=== PATIENT | female | born 1965 | race Caucasian/White ===

== ENCOUNTER → 2016-03-11 | Outpatient (CLI) | payer OTHER ==
--- NOTE | 2016-03-11 13:09 | XR ---
EXAMINATION TYPE: XR abdomen 1V DATE OF EXAM: 03/11/2016 12:59 PM CLINICAL HISTORY: Abdominal pain and constipation for 10 days. TECHNIQUE: 2 upright KUB images of the abdomen are obtained. COMPARISON: CT abdomen and pelvis April 09, 2009 FINDINGS: Scattered gas is seen in non-distended stomach and small bowel loops. Gas and fecal mater ial is seen in non-distended colon. Amount of fecal material is not significantly prominent. Large ri m calcified lesion left upper quadrant corresponds to calcified lesion along the anterior superior ma rgin of spleen and felt stable thus presumed benign. Lung bases are clear. No pneumoperitoneum is pre sent. Visualized osseous structures are intact IMPRESSION: Overall nonobstructive bowel gas pattern.
== END | disposition home or self-care (01) ==
LOC: RADXRMAIN 12:41
PROVIDERS: ATTEND Internal Medicine
DX: R10.9 Unspecified abdominal pain (principal)
CPT/HCPCS: 74000

== ENCOUNTER 2016-03-12 11:09 | Observation (INO) | payer OTHER ==
[2016-03-12] MEDS ORDERED: LACTULOSE 20 GM/30 ML CUP PO ONE (13:34)
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
[2016-03-12 14:13] LABS: Basophils % (A) 1 %; CH 31.5; CHCM 33.1; Eosinophils # (A) 0.3 k/uL (0-0.7); Eosinophils % (A) 5 %; HCT 38.3 % (34.0-46.0); HDW 2.79; HGB 12.6 gm/dL (11.4-16.0); Luc # (Auto) 0.15; Luc % (Auto) 3; Lymphocytes # (A) 1.3 k/uL (1.0-4.8); Lymphocytes % (A) 25 %; MCH 31.4 pg (25.0-35.0); MCHC 32.9 g/dL (31.0-37.0); MCV 95.4 fL (80.0-100.0); Mean Platelet Volume 6.7; Monocytes # (A) 0.3 k/uL (0-1.0); Monocytes % (A) 7 %; Neutrophils # (A) 2.9 k/uL (1.3-7.7); Neutrophils % (A) 59 %; RBC 4.01 m/uL (3.80-5.40); RDW 12.9 % (11.5-15.5); WBC 4.9 k/uL (3.8-10.6); WBC (Perox) 5.44
[2016-03-12 14:32] LABS: ALT 50 U/L (9-52); AST 25 U/L (14-36); Alkaline Phosphatase 218 U/L (38-126); Anion Gap 9 mmol/L; Blood Urea Nitrogen 14 mg/dL (7-17); Calcium 9.5 mg/dL (8.4-10.2); Carbon Dioxide 27 mmol/L (22-30); Chloride 106 mmol/L (98-107); Glucose 129 mg/dL (74-99); Magnesium 2.3 mg/dL (1.6-2.3); Non-African American GFR(MDRD) >60 (>60 ml/min/1.73 sqM); Sodium 142 mmol/L (137-145); Total Bilirubin 0.8 mg/dL (0.2-1.3); Total Protein 6.6 g/dL (6.3-8.2)
[2016-03-12] MEDS: oxyCODONE-APAP 10-325MG 1 EACH TAB PO PRN ×2 (16:14→23:28)
[2016-03-12] MEDS: HEPARIN SODIUM,PORCINE 5,000 UNIT/ML 1 ML VIAL SQ SCH (20:44)
[2016-03-12] MEDS: DIAZEPAM 5 MG TAB PO PRN (20:44)
[2016-03-13] MEDS: oxyCODONE-APAP 10-325MG 1 EACH TAB PO PRN ×3 (05:17→20:00)
[2016-03-13] MEDS: HYDROCHLOROTHIAZIDE 25 MG TAB PO SCH (08:41)
[2016-03-13] MEDS: HEPARIN SODIUM,PORCINE 5,000 UNIT/ML 1 ML VIAL SQ SCH ×2 (08:41→20:01)
[2016-03-13] MEDS: LISINOPRIL 10 MG TAB PO SCH (10:04)
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
[2016-03-13] MEDS: DIAZEPAM 5 MG TAB PO PRN (20:01)
[2016-03-13] MEDS ORDERED: POLYETHYLENE GLYCOL 3350 17 GM POWD.PACK PO SCH (21:00)
[2016-03-14] MEDS: oxyCODONE-APAP 10-325MG 1 EACH TAB PO PRN ×2 (05:01→11:17)
[2016-03-14] MEDS: HYDROCHLOROTHIAZIDE 25 MG TAB PO SCH (08:20)
[2016-03-14] MEDS: HEPARIN SODIUM,PORCINE 5,000 UNIT/ML 1 ML VIAL SQ SCH (08:20)
[2016-03-14] MEDS: LISINOPRIL 10 MG TAB PO SCH (08:20)
[2016-03-14 11:47] VITALS: BP 109/76; RESP 14; TEMP 97.9
[2016-03-14 12:12] VITALS: PULSE 60
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
== END 2016-03-14 14:01 | disposition home or self-care (01) ==
LOC: 3OBS 11:22
PROVIDERS: ADMIT Internal Medicine; ATTEND Internal Medicine
DX: K56.41 Fecal impaction (principal); R33.9 Retention of urine, unspecified; G89.29 Other chronic pain; M54.5 Low back pain; I10 Essential (primary) hypertension; Z87.891 Personal history of nicotine dependence; Z79.899 Other long term (current) drug therapy; Z79.891 Long term (current) use of opiate analgesic; Z88.5 Allergy status to narcotic agent; Z98.890 Other specified postprocedural states
CPT/HCPCS: 51702; 80053; 83735; 85025; 51798; G0378 ×3; G0379; J1644 ×3; 96372

== ENCOUNTER → 2017-04-25 | Outpatient (CLI) | payer OTHER ==
--- NOTE | 2017-04-26 12:02 | MM ---
Reason for exam: screening (asymptomatic). Last mammogram was performed 2 years and 5 months ago. History: Patient is postmenopausal and has history of endometrial cancer at age 34. Family history of premenopausal breast cancer in mother at age 45. Benign stereotactic core biopsy of the left breast, April 05, 2001. Physical Findings: A clinical breast exam by your physician is recommended on an annual basis and results should be correlated with mammographic findings. MG Screening Mammo w CAD Bilateral CC and MLO view(s) were taken. Prior study comparison: November 26, 2014, bilateral MG screening mammo w CAD. February 08, 2007, bilateral screening mammogram w/CAD. There are scattered fibroglandular densities. No suspicious abnormality. Left biopsy marker noted. No significant changes when compared with prior studies. ASSESSMENT: Negative, BI-RAD 1 RECOMMENDATION: Routine screening mammogram of both breasts in 1 year.
== END | disposition home or self-care (01) ==
LOC: RADMAMWWP 13:31
PROVIDERS: ATTEND Internal Medicine
DX: Z12.31 Encounter for screening mammogram for malignant neoplasm of breast (principal)
CPT/HCPCS: 77067

== ENCOUNTER → 2017-07-27 | Outpatient (CLI) | payer OTHER ==
--- NOTE | 2017-07-27 10:23 | XR ---
EXAMINATION TYPE: XR cervical spine limited DATE OF EXAM: 07/27/2017 COMPARISON: 11/24/1949 HISTORY: Pain TECHNIQUE: Three views are submitted. FINDINGS: Postsurgical change involving the lower cervical spine degenerative disc disease C4-5 and C5-C6 with facet arthropathy at all levels. Prevertebral soft tissue structures within normal limits. Lung apices clear. IMPRESSION: 1. Postsurgical change. 2. Degenerative disc disease and facet arthropathy.
== END | disposition home or self-care (01) ==
LOC: RADXRMAIN 09:56
PROVIDERS: ATTEND Internal Medicine
DX: R52 Pain, unspecified (principal)
CPT/HCPCS: 72040

== ENCOUNTER 2017-11-16 16:35 | Observation (INO) | payer OTHER ==
[2017-11-16 17:32] LABS: Basophils % (A) 0 %; Eosinophils # (A) 0.2 k/uL (0-0.7); Eosinophils % (A) 3 %; HCT 46.2 % (34.0-46.0); HGB 15.1 gm/dL (11.4-16.0); Lymphocytes # (A) 1.7 k/uL (1.0-4.8); Lymphocytes % (A) 31 %; MCH 31.1 pg (25.0-35.0); MCHC 32.6 g/dL (31.0-37.0); MCV 95.3 fL (80.0-100.0); Mean Platelet Volume 6.9; Monocytes # (A) 0.4 k/uL (0-1.0); Monocytes % (A) 7 %; Neutrophils # (A) 3.2 k/uL (1.3-7.7); Neutrophils % (A) 57 %; Platelet Count 199 k/uL (150-450); RBC 4.85 m/uL (3.80-5.40); WBC 5.6 k/uL (3.8-10.6)
[2017-11-16 17:46] LABS: ALT 51 U/L (9-52); AST 41 U/L (14-36); Albumin 4.4 g/dL (3.5-5.0); Alkaline Phosphatase 105 U/L (38-126); Anion Gap 7 mmol/L; Blood Urea Nitrogen 16 mg/dL (7-17); Calcium 9.6 mg/dL (8.4-10.2); Carbon Dioxide 26 mmol/L (22-30); Chloride 106 mmol/L (98-107); Glucose 94 mg/dL (74-99); Lipase 202 U/L (23-300); Magnesium 2.3 mg/dL (1.6-2.3); Potassium 3.9 mmol/L (3.5-5.1); Sodium 139 mmol/L (137-145); Total Bilirubin 0.7 mg/dL (0.2-1.3); Total Protein 7.5 g/dL (6.3-8.2)
[2017-11-16 17:48] LABS: Prothrombin Time 9.7 sec (9.0-12.0)
[2017-11-16 17:56] LABS: Creatine Kinase 53 U/L (30-135)
[2017-11-16 18:00] LABS: D-Dimer 0.68 mg/L FEU (<0.60)
[2017-11-16 18:08] LABS: Creatine Kinase MB 0.6 ng/mL (0.0-2.4); Troponin I <0.012 ng/mL (0.000-0.034)
--- NOTE | 2017-11-16 18:21 | ED ---
Chest Pain HPI - General Chief Complaint: Chest Pain Stated Complaint: chest pain Time Seen by Provider: 11/16/17 16:41 Source: patient, RN notes reviewed, old records reviewed Mode of arrival: ambulatory Limitations: no limitations - History of Present Illness Initial Comments: This is a 52-year-old female to the ER for evasive chest pain. Chest pain is nonspecific atypical. Patient sent in by primary care for cardiac evaluation. Patient states chest pain is left-sided sharp and is episodic. Nothing seems to make it better or worse, pain seems to be occasionally worse at night occur more frequently at night. She does also shortness of breath and diaphoresis. No recent travel history or sick contacts again no fevers MD Complaint: chest pain -: week(s) (5) Onset: during rest, during exertion, awoke with symptoms Pain Location: left chest Pain Radiation: none Severity: mild Severity scale (1-10): 3 Quality: sharp Consistency: intermittent, now resolved Improves With: nothing Worsens With: nothing Anginal Symptoms: diaphoresis, dyspnea Other Symptoms: palpitations Treatments Prior to Arrival: none - Related Data Home Medications Medication Instructions Recorded Confirmed oxyCODONE HCL/ACETAMINOPHEN 1 tab PO BID PRN 09/18/14 11/16/17 [Percocet 10-325 mg] Diazepam [Valium] 2 mg PO TID 11/16/17 11/16/17 Ergocalciferol [Vitamin D2] 50,000 unit PO MO 11/16/17 11/16/17 Allergies Allergy/AdvReac Type Severity Reaction Status Date / Time morphine Allergy Anaphylaxis Verified 11/16/17 17:07 Review of Systems ROS Statement: Those systems with pertinent positive or pertinent negative responses have been documented in the HPI. ROS Other: All systems not noted in ROS Statement are negative. EKG Findings - EKG Comments: EKG Findings:: EKG shows sinus rate of 60, AK 172, QRS 86, QTc 478 Past Medical History Past Medical History: No Reported History, Hypertension, Osteoarthritis (OA) History of Any Multi-Drug Resistant Organisms: None Reported Past Surgical History: Back Surgery, Hysterectomy, Orthopedic Surgery Additional Past Surgical History / Comment(s): 03/02/16-right knee cap reconstruction. neck 3x-crushed c7= has 10 screws, 2 rods, and a cage. 17 screws and plate in the right lower leg Past Anesthesia/Blood Transfusion Reactions: Motion Sickness Past Psychological History: No Psychological Hx Reported Smoking Status: Current every day smoker Past Alcohol Use History: Abuse, Daily Past Drug Use History: None Reported - Past Family History Mother Family Medical History: Congestive Heart Failure (CHF) Father Family Medical History: Cancer, Respiratory Disorder Additional Family Medical History / Comment(s): emphasema and lung cancer General Exam Limitations: no limitations General appearance: alert, in no apparent distress Head exam: Present: atraumatic, normocephalic, normal inspection Eye exam: Present: normal appearance, PERRL, EOMI. Absent: scleral icterus, conjunctival injection, periorbital swelling ENT exam: Present: normal exam, mucous membranes moist Neck exam: Present: normal inspection. Absent: tenderness, meningismus, lymphadenopathy Respiratory exam: Present: normal lung sounds bilaterally. Absent: respiratory distress, wheezes, rales, rhonchi, stridor Cardiovascular Exam: Present: regular rate, normal rhythm, normal heart sounds. Absent: systolic murmur, diastolic murmur, rubs, gallop, clicks GI/Abdominal exam: Present: soft, normal bowel sounds. Absent: distended, tenderness, guarding, rebound, rigid Extremities exam: Present: normal inspection, full ROM, normal capillary refill. Absent: tenderness, pedal edema, joint swelling, calf tenderness Back exam: Present: normal inspection Neurological exam: Present: alert, oriented X3, CN II-XII intact Psychiatric exam: Present: normal affect, normal mood Skin exam: Present: warm, dry, intact, normal color. Absent: rash Course Vital Signs 11/16/17 11/16/17 16:37 18:46 Temperature 98.4 F Pulse Rate 61 55 L Respiratory 18 20 Rate Blood Pressure 176/104 163/102 O2 Sat by Pulse 99 96 Oximetry - Reevaluation(s) Reevaluation #1: 11/16/17 19:12 Medical records thoroughly reviewed Reevaluation #2: 11/16/17 19:12 Patient is still complaining of chest pain Reevaluation #3: 11/16/17 19:13 Studies Chest x-rays negative for acute disease Chest Pain MDM - MDM 52 female the ER with chest pain. Patient will be admitted for cardiac observation, no significant cardiac risk factors CT negative troponin negative Critical Care Time Critical Care Time: Yes Total Critical Care Time: 31 Disposition Clinical Impression: Chest pain Disposition: ADMITTED IP TO THIS HOSP Condition: Undetermined
[2017-11-16] MEDS ORDERED: NITROGLYCERIN SL TABS 0.4 MG TAB SUBLINGUAL PRN (18:56)
[2017-11-16] MEDS ORDERED: HEPARIN SODIUM,PORCINE 5,000 UNIT/ML 1 ML VIAL IV ONE (18:56)
[2017-11-16] MEDS ORDERED: HEPARIN SODIUM,PORCINE 5,000 UNIT/ML 1 ML VIAL IV PRN (18:56)
--- NOTE | 2017-11-16 18:59 | CT ---
EXAMINATION TYPE: CT angio chest DATE OF EXAM: 11/16/2017 6:34 PM COMPARISON: 02/10/2014 HISTORY: Chest pain x1 week CT DLP: 349.5 mGycm Automated exposure control for dose reduction was used. CONTRAST: CTA scan of the thorax is performed with IV Contrast, patient injected with 60 mL of Isovue 370, pulm onary embolism protocol. . There are 3-D post processed images. FINDINGS: The lungs are clear of consolidation. There is no evidence of a pulmonary mass. There is no pleural e ffusion. There is no pericardial effusion. Ascending aorta measures 4 cm. There is no evidence of aortic dissection. I see no filling defects in the pulmonary arteries. There are no hilar masses. There is no mediastinal adenopathy. The bony thor ax is intact. There is metal artifact from spine surgery at the cervical thoracic junction. There is a 9 cm cystic mass involving the anterior spleen with a rim of calcification. This could be from old hematoma. IMPRESSION: NO EVIDENCE OF PULMONARY EMBOLISM. STABLE 4 cm ANEURYSM ASCENDING AORTA. STABLE LARGE CALCIFIED SPLEN IC CYST.
[2017-11-16] MEDS ORDERED: HEPARIN SOD,PORK IN 0.45% NACL 25,000 UNIT in 0.45% NACL 1 500ML.BAG IV SCH (19:00)
[2017-11-16] MEDS: SODIUM CHLORIDE 0.9% 1,000 ML IV SCH (19:09)
[2017-11-16 20:57] VITALS: BMI 35.4
[2017-11-16] MEDS: DIAZEPAM 2 MG TAB PO PRN (21:01)
[2017-11-16] MEDS: oxyCODONE-APAP 10-325MG 1 EACH TAB PO PRN (21:01)
[2017-11-16] MEDS: METOPROLOL TARTRATE 25 MG TAB PO SCH (21:02)
[2017-11-16 23:30] LABS: Creatine Kinase 35 U/L (30-135)
[2017-11-16 23:44] LABS: Creatine Kinase MB 0.4 ng/mL (0.0-2.4); Troponin I <0.012 ng/mL (0.000-0.034)
[2017-11-17 06:24] LABS: Mean Platelet Volume 6.9; Platelet Count 165 k/uL (150-450)
[2017-11-17] MEDS: SODIUM CHLORIDE 0.9% 1,000 ML IV SCH ×2 (06:26→08:59)
[2017-11-17 06:37] LABS: Cholesterol 209 mg/dL (<200); HDL Cholesterol 59 mg/dL (40-60); LDL Cholesterol,Calculated 110 mg/dL (0-99); Triglycerides 201 mg/dL (<150)
[2017-11-17 06:45] LABS: Creatine Kinase 34 U/L (30-135)
[2017-11-17 06:59] LABS: Creatine Kinase MB 0.3 ng/mL (0.0-2.4); Troponin I <0.012 ng/mL (0.000-0.034)
[2017-11-17 08:58] LABS: Basophils % (A) 1 %; Eosinophils # (A) 0.2 k/uL (0-0.7); Eosinophils % (A) 5 %; HCT 38.6 % (34.0-46.0); Lymphocytes # (A) 1.6 k/uL (1.0-4.8); Lymphocytes % (A) 40 %; MCH 31.9 pg (25.0-35.0); MCHC 33.8 g/dL (31.0-37.0); MCV 94.4 fL (80.0-100.0); Mean Platelet Volume 7.2; Monocytes # (A) 0.3 k/uL (0-1.0); Monocytes % (A) 8 %; Neutrophils # (A) 1.8 k/uL (1.3-7.7); Neutrophils % (A) 45 %; Platelet Count 165 k/uL (150-450); RBC 4.09 m/uL (3.80-5.40); RDW 12.9 % (11.5-15.5)
[2017-11-17] MEDS: METOPROLOL TARTRATE 25 MG TAB PO SCH ×2 (08:58→20:09)
[2017-11-17] MEDS ORDERED: ASPIRIN 325 MG TAB PO SCH (09:00)
[2017-11-17] MEDS: DIAZEPAM 2 MG TAB PO PRN (09:09)
[2017-11-17] MEDS: oxyCODONE-APAP 10-325MG 1 EACH TAB PO PRN ×2 (09:10→20:08)
[2017-11-17 09:11] LABS: ALT 40 U/L (9-52); AST 29 U/L (14-36); Albumin 3.2 g/dL (3.5-5.0); Alkaline Phosphatase 86 U/L (38-126); Anion Gap 3 mmol/L; Blood Urea Nitrogen 15 mg/dL (7-17); Calcium 8.7 mg/dL (8.4-10.2); Carbon Dioxide 26 mmol/L (22-30); Chloride 113 mmol/L (98-107); Glucose 91 mg/dL (74-99); Potassium 4.5 mmol/L (3.5-5.1); Sodium 142 mmol/L (137-145); Total Bilirubin 0.7 mg/dL (0.2-1.3); Total Protein 5.8 g/dL (6.3-8.2)
[2017-11-17] MEDS ORDERED: REGADENOSON 0.4 MG/5 ML SYRINGE IV ONE (09:44)
[2017-11-17] MEDS ORDERED: CAFFEINE CITRATE 60 MG/3 ML VIAL IV PRN (09:44)
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
[2017-11-17] MEDS ORDERED: THIAMINE 100 MG/ML 2 ML VIAL IM STA (11:21)
[2017-11-17] MEDS ORDERED: LORazepam 2 MG/ML INJ IV PRN ×3 (11:21)
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
--- NOTE | 2017-11-17 11:55 | ECHOF ---
Referral Reason:chest pain MEASUREMENTS -------- HEIGHT: 167.6 cm WEIGHT: 98.9 kg BP: RVIDd: 3.1 cm (< 3.3) IVSd: 1.4 cm (0.6 - 1.1) LVIDd: 3.4 cm (3.9 - 5.3) LVPWd: 1.5 cm (0.6 - 1.1) IVSs: 2.2 cm LVIDs: 1.7 cm LVPWs: 2.2 cm Ao Diam: 3.6 cm (2.0 - 3.7) AV Cusp: 2.5 cm (1.5 - 2.6) LA Diam: 3.1 cm (2.7 - 3.8) MV EXCURSION: 9.024 mm (> 18.000) MV EF SLOPE: 52 mm/s (70 - 150) EPSS: 0.4 cm MV E Peña: 0.78 m/s MV DecT: 207 ms MV A Peña: 0.92 m/s MV E/A Ratio: 0.85 RAP: 5.00 mmHg RVSP: 11.24 mmHg FINDINGS -------- Sinus rhythm. This was a technically good study. The left ventricular size is normal. There is moderate concentric left ventricular hypertrophy. O verall left ventricular systolic function is normal with, an EF between 55 - 60 %. The right ventricle is normal in size. The left atrium is normal in size. The right atrium is normal in size. The aortic valve is trileaflet and appears structurally normal. The mitral valve leaflets are mildly thickened. Mild mitral regurgitation is present. Mild tricuspid regurgitation present. The right ventricular systolic pressure, as measured by Doppl er, is 11.24mmHg. Pulmonic valve appears structurally normal. The aortic root is dilated measuring 3.8 Normal inferior vena cava with normal inspiratory collapse consistent with estimated right atrial pre ssure of 5 mmHg. The pericardium is normal. CONCLUSIONS -------- 1. Sinus rhythm. 2. This was a technically good study. 3. The left ventricular size is normal. 4. There is moderate concentric left ventricular hypertrophy. 5. Overall left ventricular systolic function is normal with, an EF between 55 - 60 %. 6. The right ventricle is normal in size. 7. The left atrium is normal in size. 8. The right atrium is normal in size. 9. The aortic valve is trileaflet and appears structurally normal. 10. The mitral valve leaflets are mildly thickened. 11. Mild mitral regurgitation is present. 12. Mild tricuspid regurgitation present. 13. The right ventricular systolic pressure, as measured by Doppler, is 11.24mmHg. 14. Pulmonic valve appears structurally normal. 15. The aortic root is dilated measuring 3.8 16. Normal inferior vena cava with normal inspiratory collapse consistent with estimated right atrial pressure of 5 mmHg. 17. The pericardium is normal. ABR[employer] WHEEL MOLDER: Tamera Correa RDCS
--- NOTE | 2017-11-17 13:36 | EST ---
EXERCISE STRESS DATE OF SERVICE: 11/17/2017 AGE: 52 SEX: Female HT: 66" WT: 218 pounds PROTOCOL: Lexiscan Cardiolite STAGE: DURATION OF EXERCISE: HEART RATE REST: 41 BLOOD PRESSURE REST: 138/95 MAXIMUM HEART RATE ACHIEVED: 65 MAXIMUM BLOOD PRESSURE: 127/88 85% MPHR: 142 100% MPHR: 167 METS: INDICATIONS: Chest pain. CLINICAL INFORMATION: Baseline EKG revealed normal sinus rhythm with sinus bradycardia and precordial nonspecific T-wave inversion. With Lexiscan administration, heart rate changed from 42 to 65 beats per minute blood pressure changed from 138/95 to 127/88. EKG remained inconclusive with nonspecific ST abnormality. Patient did not have any angina or arrhythmia. By EKG criteria, this is an inconclusive stress test with minor resting EKG changes to begin with. The nuclear scan results which are more pertinent, will be reported by the radiologist. YAHAIRA / WILFRIDON: [id number] /
--- NOTE | 2017-11-17 14:00 | NM ---
EXAMINATION TYPE: NM stress lexiscan cardiolite DATE OF EXAM: 11/17/2017 COMPARISON: NONE HISTORY: Chest pain TECHNIQUE: After the intravenous administration of 10.9 mCi Tc 99m Sestamibi - Cardiolite resting SP ECT images acquired 55 minutes post injection. The patient received 0.4mg Lexiscan, 25.2 mCi Tc 99m Sestamibi - Stress images obtained [address] injection FINDINGS: Review of stress and rest SPECT images demonstrates no distinct perfusion abnormality. Gated analysi s shows normal wall motion with an estimated left ventricular ejection fraction of 59 %. There may be some mild anterior wall dyskinesia near the cardiac apex. IMPRESSION: 1. No stress-induced ischemic change. 2. Mild dyskinesia of the distal anterior wall
[2017-11-17] MEDS: FOLIC ACID 1 MG TAB PO SCH (15:34)
[2017-11-17] MEDS: THIAMINE 100 MG TAB PO SCH (15:34)
[2017-11-17] MEDS: MULTIVITAMINS, THERA 1 EACH TAB PO SCH (15:34)
[2017-11-17] MEDS: DIAZEPAM 2 MG TAB PO SCH ×2 (15:38→20:08)
[2017-11-17] MEDS: HEPARIN SODIUM,PORCINE 5,000 UNIT/ML 1 ML VIAL SQ SCH (20:09)
[2017-11-17] MEDS ORDERED: PRAVASTATIN SODIUM 20 MG TAB PO SCH (21:00)
[2017-11-18] MEDS: SODIUM CHLORIDE 0.9% 1,000 ML IV SCH (02:30)
[2017-11-18 02:39] VITALS: RESP 18
[2017-11-18 06:34] LABS: Mean Platelet Volume 6.9; Platelet Count 161 k/uL (150-450)
[2017-11-18] MEDS: DIAZEPAM 2 MG TAB PO SCH (08:15)
[2017-11-18] MEDS: FOLIC ACID 1 MG TAB PO SCH (08:15)
[2017-11-18] MEDS: MULTIVITAMINS, THERA 1 EACH TAB PO SCH (08:15)
[2017-11-18] MEDS: THIAMINE 100 MG TAB PO SCH (08:15)
[2017-11-18] MEDS: METOPROLOL TARTRATE 25 MG TAB PO SCH (08:15)
[2017-11-18] MEDS: HEPARIN SODIUM,PORCINE 5,000 UNIT/ML 1 ML VIAL SQ SCH (08:15)
[2017-11-18] MEDS: oxyCODONE-APAP 10-325MG 1 EACH TAB PO PRN (08:18)
[2017-11-18] MEDS ORDERED: ASPIRIN 81 MG PO SCH (09:00)
[2017-11-18 11:22] VITALS: BP 109/66; PULSE 41; TEMP 97.1
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
[2017-11-20] MEDS ORDERED: ERGOCALCIFEROL 50,000 UNIT CAP PO SCH (12:00)
== END 2017-11-18 15:08 | disposition home or self-care (01) ==
LOC: EC 16:35 → 6SEL 18:57
PROVIDERS: ADMIT Internal Medicine; ATTEND Internal Medicine
DX: R07.89 Other chest pain (principal); R06.00 Dyspnea, unspecified; R61 Generalized hyperhidrosis; R06.02 Shortness of breath; R00.2 Palpitations; R79.89 Other specified abnormal findings of blood chemistry; E78.00 Pure hypercholesterolemia, unspecified; I11.9 Hypertensive heart disease without heart failure; F10.10 Alcohol abuse, uncomplicated; I71.2 Thoracic aortic aneurysm, without rupture; Z91.14 Patient's other noncompliance with medication regimen; F17.200 Nicotine dependence, unspecified, uncomplicated; Z79.899 Other long term (current) drug therapy; Z79.891 Long term (current) use of opiate analgesic; Z88.5 Allergy status to narcotic agent; Z87.828 Personal history of other (healed) physical injury and trauma; Z82.49 Family history of ischemic heart disease and other diseases of the circulatory system; Z80.1 Family history of malignant neoplasm of trachea, bronchus and lung; Z83.6 Family history of other diseases of the respiratory system
CPT/HCPCS: 99291; 96376 ×2; 96365 ×2; 96372 ×2; 36415; 93005; 93017; 93306; 85379; 80061; 80053 ×2; 82550 ×2; 82553 ×2; 83690; 83735; 84484 ×2; 85025 ×2; 85049 ×2; 85610; 85730 ×2; 71275; 78452; G0378 ×3; A9500; J1644 ×4; J2785; Q9967

== ENCOUNTER → 2018-06-28 | Outpatient (CLI) | payer MEDICARE, OTHER ==
--- NOTE | 2018-06-28 08:09 | CT ---
CT CHEST FOR PULMONARY EMBOLISM. EXAMINATION TYPE: CT angio chest DATE OF EXAM: 06/28/2018 INDICATION: Thoracic Aortic Aneurysm, without rupture CT DLP: 447 mGycm, Automated exposure control for dose reduction was used. CONTRAST: Patient injected with 100 mL of Isovue 370. COMPARISON: 11/16/2017 TECHNIQUE: CT of the chest is performed on a spiral scan at 2 mm thick sections. Study is performed with intravenous contrast timed for evaluation for pulmonary embolism. This will limit additional po rtions of the evaluation. 3-D MIP images reconstructed by the technologist are reviewed on the compu ter in the coronal and sagittal planes. FINDINGS: No persistent filling defects are evident to suggest an acute pulmonary embolism. No mediastinal or hilar adenopathy enlarged by CT criteria is evident. The ascending aorta diameter at the level of the main pulmonary artery is 3.9 cm, previous measurement 4 cm. The main pulmonary a rtery diameter at the bifurcation is 3.2 cm. Lung windows are clear. Limited CT section through the upper abdomen. Large calcified cyst is within the spleen, present prev iously and stable. IMPRESSIONS: 1. Stable ascending thoracic aorta, current measurement 3.9 cm.
== END | disposition home or self-care (01) ==
LOC: RADCTMAIN 07:00
PROVIDERS: ATTEND Internal Medicine Cardiovascular Disease
DX: I71.2 Thoracic aortic aneurysm, without rupture (principal)
CPT/HCPCS: 71275; Q9967

== ENCOUNTER → 2018-07-21 | Outpatient (CLI) | payer MEDICARE, OTHER ==
--- NOTE | 2018-07-21 08:08 | MR ---
MR lumbar spine wo/w con Low back pain Gadavist Multiplanar, multiecho imaging of the lumbar spine was obtained without contrast on a 3 Nette magnet. REFERENCE:None. FINDINGS: Paraspinal soft tissues are normal. Vertebral body height and alignment are maintained. Cord signal is maintained. The conus ends normall y at the level of the mid body of L1. At T12-L1, no definite abnormality is seen. At L1-2, intervertebral foramina are well maintained. There is a mild, diffuse disc displacement. The re is no significant compressive discopathy. There is mild hypertrophic change in the facets. At L2-3, the intervertebral foramina are well maintained. There is no significant compressive discopa thy. There are hypertrophic changes and capsulitis in the facets. At L3-4, there is disc space loss and disc desiccation. There is a right paracentral disc displacemen t mildly deforming the thecal sac. Intervertebral foramina are well maintained. There is mild hypertr ophic change and capsulitis in the facets. There is a conjoined roots on the left. At L4-5, the intervertebral foramina are well maintained. There is disc space loss and disc desiccati on. There is a diffuse disc displacement. There is a conjoined root on the left. There are hypertroph ic changes and capsulitis in the facets. At L5-S1, there is mild left-sided intervertebral foraminal narrowing. There is no significant compre ssive discopathy. There is hypertrophic change and capsulitis in the facets. IMPRESSION: 1. DIFFUSE DEGENERATIVE DISC DISEASE AND FACET ARTHROPATHY. 2. CONJOINED ROOTS PRESENT AT L3-4 AND L4-5. 3. LEFT-SIDED INTERVERTEBRAL FORAMINAL NARROWING, L5-S1.
== END | disposition home or self-care (01) ==
LOC: RADMRIMAIN 07:08
PROVIDERS: ATTEND Internal Medicine
DX: M99.73 Connective tissue and disc stenosis of intervertebral foramina of lumbar region (principal); M51.36 Other intervertebral disc degeneration, lumbar region; M46.96 Unspecified inflammatory spondylopathy, lumbar region; G54.4 Lumbosacral root disorders, not elsewhere classified
CPT/HCPCS: 72158; A9585

== ENCOUNTER 2018-08-25 21:18 | Emergency (ER) | payer MEDICARE, OTHER ==
--- NOTE | 2018-08-25 21:40 | ED ---
Psych HPI - General Source: patient Mode of arrival: ambulatory - History of Present Illness MD Complaint: suicidal ideation, feels depressed Onset/Timin -: month(s) Associated Psychiatric Symptoms: depression, suicidal ideation History of same: Yes Quality: getting worse Improves With: none Worsens With: alcohol Associated Symptoms: denies other symptoms <Brett Deng - Last Filed: 08/26/18 02:38> <Gee Haro - Last Filed: 08/26/18 15:44> - General Chief Complaint: Psychiatric Symptoms Stated Complaint: overdose Time Seen by Provider: 08/25/18 21:25 - History of Present Illness Initial Comments: This patient is a 52-year-old woman who has been moderately depressed since her approximately 5 months ago. Today she had been drinking and then she was feeling more depressed and states that she then attempted to overdose. She took 12 of her Ambien tablets and 2 Valium tablets in addition to drinking alcohol. (Brett Deng) - Related Data Home Medications Medication Instructions Recorded Confirmed oxyCODONE HCL/ACETAMINOPHEN 1 tab PO BID PRN 09/18/14 08/26/18 [Percocet 10-325 mg] Diazepam [Valium] 2 mg PO TID 11/16/17 08/26/18 Ergocalciferol [Vitamin D2 50,000 unit PO MO 11/16/17 08/26/18 (DRISDOL)] Multivitamins, Thera [Multivitamin 1 tab PO DAILY 08/26/18 08/26/18 (formulary)] Zolpidem [Ambien] 5 mg PO HS PRN 08/26/18 08/26/18 Previous Rx's Medication Instructions Recorded Aspirin 81 mg PO DAILY chew 11/18/17 Folic Acid 1 mg PO DAILY@1200 tab 11/18/17 Metoprolol Tartrate [Lopressor] 25 mg PO BID tab 11/18/17 Nitroglycerin Sl Tabs [Nitrostat] 0.4 mg SUBLINGUAL Q5M PRN tab 11/18/17 Pravastatin Sodium [Pravachol] 20 mg PO HS tab 11/18/17 Thiamine [Vitamin B-1] 100 mg PO DAILY tab 11/18/17 Allergies Allergy/AdvReac Type Severity Reaction Status Date / Time morphine Allergy Anaphylaxis Verified 08/26/18 07:26 Review of Systems ROS Other: All systems not noted in ROS Statement are negative. Constitutional: Denies: fever, chills Respiratory: Denies: cough, dyspnea Cardiovascular: Denies: chest pain, syncope Gastrointestinal: Denies: abdominal pain, vomiting, diarrhea Genitourinary: Denies: dysuria, hematuria Skin: Denies: rash Neurological: Denies: headache, weakness Psychiatric: Reports: depression, suicidal thoughts. Denies: auditory boston ucinations, visual hallucinations, homicidal thoughts <Brett Deng - Last Filed: 08/26/18 02:38> ROS Other: All systems not noted in ROS Statement are negative. <Gee Haro - Last Filed: 08/26/18 15:44> ROS Statement: Those systems with pertinent positive or pertinent negative responses have been documented in the HPI. Past Medical History Past Medical History: Hypertension, Osteoarthritis (OA) Additional Past Medical History / Comment(s): Per patient aortic aneurism History of Any Multi-Drug Resistant Organisms: None Reported Past Surgical History: Back Surgery, Hysterectomy, Orthopedic Surgery Additional Past Surgical History / Comment(s): 03/02/16-right knee cap richelle nstruction. neck 3x-crushed c7= has 10 screws, 2 rods, and a cage. 17 screws and plate in the right lower leg. Cervial surg, knee surg Past Anesthesia/Blood Transfusion Reactions: Motion Sickness Past Psychological History: No Psychological Hx Reported Smoking Status: Current every day smoker Past Alcohol Use History: Abuse, Daily Past Drug Use History: None Reported - Past Family History Mother Family Medical History: Congestive Heart Failure (CHF) Father Family Medical History: Cancer, Respiratory Disorder Additional Family Medical History / Comment(s): emphasema and lung cancer <Brett Deng - Last Filed: 08/26/18 02:38> General Exam Limitations: language barrier General appearance: alert, in no apparent distress, appears intoxicated Head exam: Present: atraumatic, normocephalic Eye exam: Present: normal appearance. Absent: scleral icterus, conjunctival injection ENT exam: Present: mucous membranes dry Neck exam: Present: normal inspection Respiratory exam: Present: normal lung sounds bilaterally. Absent: respiratory distress, wheezes, rales, rhonchi, stridor Cardiovascular Exam: Present: regular rate, normal rhythm, normal heart sounds. Absent: systolic murmur, diastolic murmur, rubs, gallop GI/Abdominal exam: Present: soft. Absent: distended, tenderness, guarding, rebound, rigid, mass Extremities exam: Present: normal capillary refill, other (Orthopedic knee brace right knee). Absent: pedal edema, calf tenderness Back exam: Present: normal inspection Neurological exam: Present: alert, oriented X3, other (Speech with mild slurring). Absent: motor sensory deficit Psychiatric exam: Present: depressed, suicidal ideation. Absent: agitated, anxious, flat affect, manic, homicidal ideation Skin exam: Present: warm, dry, intact, normal color. Absent: rash <Brett Deng - Last Filed: 08/26/18 02:38> Course <Gee Haro - Last Filed: 08/26/18 15:44> Vital Signs 08/25/18 08/25/18 08/25/18 21:25 21:29 21:30 Temperature Pulse Rate 68 67 65 Respiratory 14 16 19 Rate Blood Pressure 157/100 O2 Sat by Pulse 99 Oximetry 08/25/18 08/25/18 08/25/18 22:00 22:30 22:32 Temperature 98.8 F Pulse Rate 64 66 75 Respiratory 28 H 18 Rate Blood Pressure 157/101 157/101 139/113 O2 Sat by Pulse 96 98 Oximetry 08/25/18 08/25/18 08/26/18 23:00 23:30 00:00 Temperature Pulse Rate 68 71 75 Respiratory 16 Rate Blood Pressure 157/101 139/113 139/113 O2 Sat by Pulse 98 Oximetry 08/26/18 08/26/18 08/26/18 00:30 01:00 01:03 Temperature Pulse Rate 75 78 76 Respiratory 18 Rate Blood Pressure 139/113 136/91 O2 Sat by Pulse 98 Oximetry 08/26/18 08/26/18 08/26/18 01:30 02:00 02:30 Temperature Pulse Rate 100 74 71 Respiratory 17 14 Rate Blood Pressure 136/91 136/91 136/91 O2 Sat by Pulse 95 93 L 93 L Oximetry 08/26/18 08/26/18 08/26/18 03:00 03:10 03:30 Temperature Pulse Rate 71 71 Respiratory 17 17 17 Rate Blood Pressure 136/91 136/91 O2 Sat by Pulse 91 L 91 L Oximetry 08/26/18 08/26/18 08/26/18 04:00 04:30 05:00 Temperature Pulse Rate 72 69 72 Respiratory 16 15 19 Rate Blood Pressure 136/91 136/91 136/91 O2 Sat by Pulse 89 L 92 L 92 L Oximetry 08/26/18 08/26/18 08/26/18 05:03 05:30 06:00 Temperature Pulse Rate 67 70 Respiratory 18 20 Rate Blood Pressure 136/91 136/91 O2 Sat by Pulse 96 92 L Oximetry 08/26/18 08/26/18 08/26/18 06:30 06:49 07:00 Temperature 98.2 F Pulse Rate 79 78 76 Respiratory 16 18 14 Rate Blood Pressure 136/91 143/100 143/100 O2 Sat by Pulse 92 L 97 93 L Oximetry 08/26/18 08/26/18 08/26/18 07:30 08:00 08:30 Temperature Pulse Rate 73 71 72 Respiratory 16 18 18 Rate Blood Pressure 143/100 143/100 143/100 O2 Sat by Pulse 93 L 95 93 L Oximetry 08/26/18 08/26/18 08/26/18 09:00 09:30 10:00 Temperature Pulse Rate 73 77 75 Respiratory 16 18 17 Rate Blood Pressure 158/112 146/103 148/91 O2 Sat by Pulse 92 L 93 L 92 L Oximetry 08/26/18 08/26/18 08/26/18 10:01 10:30 11:30 Temperature Pulse Rate 68 73 66 Respiratory 18 17 18 Rate Blood Pressure 139/94 155/103 154/98 O2 Sat by Pulse 94 L 94 L 96 Oximetry 08/26/18 08/26/18 12:30 13:00 Temperature Pulse Rate 62 65 Respiratory 18 18 Rate Blood Pressure 135/96 132/94 O2 Sat by Pulse 96 95 Oximetry - Reevaluation(s) Reevaluation #1: 08/26/18 10:36 Mental health services has requested medication for blood pressure and potassium and this has been provided. They also requested EKG. EKG shows normal sinus rhythm at 63. [place] 148. QRS 80. QT 454. QTC 464. Normal axis. Normal QRS. No acute ST change. (Gee Haro) Medical Decision Making - Lab Data Result diagrams: 08/25/18 21:30 08/25/18 21:30 - EKG Data -: EKG Interpreted by [facility] EKG shows normal: sinus rhythm, axis (Normal), intervals (Normal), QRS complexes (Incomplete right bundle branch block), ST-T waves (Normal) <Brett Deng - Last Filed: 08/26/18 02:38> - Lab Data Result diagrams: 08/25/18 21:30 08/25/18 21:30 <Gee Haro - Last Filed: 08/26/18 15:44> - Medical Decision Making Patient reevaluated by myself, Dr. Haro. Patient resting comfortably in bed. Patient admits to depression and suicidal thoughts. Clinical certificate completed again by myself. Original certificate was completed by Dr. Nicholson. (Gee Haro) - Lab Data Lab Results 08/25/18 08/25/18 08/26/18 Range/Units 21:30 21:30 01:31 WBC 4.8 (3.8-10.6) k/uL RBC 4.13 (3.80-5.40) m/uL Hgb 12.9 (11.4-16.0) gm/dL Hct 37.9 (34.0-46.0) % MCV 91.6 (80.0-100.0) fL MCH 31.3 (25.0-35.0) pg MCHC 34.2 (31.0-37.0) g/dL RDW 14.2 (11.5-15.5) % Plt Count 180 (150-450) k/uL Neutrophils % 43 % Lymphocytes % 43 % Monocytes % 6 % Eosinophils % 4 % Basophils % 1 % Neutrophils # 2.1 (1.3-7.7) k/uL Lymphocytes # 2.1 (1.0-4.8) k/uL Monocytes # 0.3 (0-1.0) k/uL Eosinophils # 0.2 (0-0.7) k/uL Basophils # 0.0 (0-0.2) k/uL Sodium 140 (137-145) mmol/L Potassium 3.3 L (3.5-5.1) mmol/L Chloride 106 (98-107) mmol/L Carbon Dioxide 26 (22-30) mmol/L Anion Gap 8 mmol/L BUN 11 (7-17) mg/dL Creatinine 0.75 (0.52-1.04) mg/dL Est GFR (CKD-EPI)AfAm >90 (>60 ml/min/1.73 sqM) Est GFR (CKD-EPI)NonAf >90 (>60 ml/min/1.73 sqM) Glucose 103 H (74-99) mg/dL Calcium 9.1 (8.4-10.2) mg/dL Total Bilirubin 0.4 (0.2-1.3) mg/dL AST 22 (14-36) U/L ALT 23 (9-52) U/L Alkaline Phosphatase 66 (38-126) U/L Total Protein 6.5 (6.3-8.2) g/dL Albumin 4.0 (3.5-5.0) g/dL Urine HCG, Qual (Not Detectd) Salicylates <1.0 mg/dL Urine Opiates Screen Not Detected (NotDetected) Ur Oxycodone Screen Not Detected (NotDetected) Urine Methadone Screen Not Detected (NotDetected) Ur Propoxyphene Screen Not Detected (NotDetected) Acetaminophen <10.0 ug/mL Ur Barbiturates Screen Not Detected (NotDetected) U Tricyclic Antidepress Not Detected (NotDetected) Ur Phencyclidine Scrn Not Detected (NotDetected) Ur Amphetamines Screen Not Detected (NotDetected) U Methamphetamines Scrn Not Detected (NotDetected) U Benzodiazepines Scrn Detected H (NotDetected) Urine Cocaine Screen Not Detected (NotDetected) U Marijuana (THC) Screen Not Detected (NotDetected) Serum Alcohol 152 mg/dL 08/26/18 Range/Units 01:31 WBC (3.8-10.6) k/uL RBC (3.80-5.40) m/uL Hgb (11.4-16.0) gm/dL Hct (34.0-46.0) % MCV (80.0-100.0) fL MCH (25.0-35.0) pg MCHC (31.0-37.0) g/dL RDW (11.5-15.5) % Plt Count (150-450) k/uL Neutrophils % % Lymphocytes % % Monocytes % % Eosinophils % % Basophils % % Neutrophils # (1.3-7.7) k/uL Lymphocytes # (1.0-4.8) k/uL Monocytes # (0-1.0) k/uL Eosinophils # (0-0.7) k/uL Basophils # (0-0.2) k/uL Sodium (137-145) mmol/L Potassium (3.5-5.1) mmol/L Chloride (98-107) mmol/L Carbon Dioxide (22-30) mmol/L Anion Gap mmol/L BUN (7-17) mg/dL Creatinine (0.52-1.04) mg/dL Est GFR (CKD-EPI)AfAm (>60 ml/min/1.73 sqM) Est GFR (CKD-EPI)NonAf (>60 ml/min/1.73 sqM) Glucose (74-99) mg/dL Calcium (8.4-10.2) mg/dL Total Bilirubin (0.2-1.3) mg/dL AST (14-36) U/L ALT (9-52) U/L Alkaline Phosphatase (38-126) U/L Total Protein (6.3-8.2) g/dL Albumin (3.5-5.0) g/dL Urine HCG, Qual Not Detected (Not Detectd) Salicylates mg/dL Urine Opiates Screen (NotDetected) Ur Oxycodone Screen (NotDetected) Urine Methadone Screen (NotDetected) Ur Propoxyphene Screen (NotDetected) Acetaminophen ug/mL Ur Barbiturates Screen (NotDetected) U Tricyclic Antidepress (NotDetected) Ur Phencyclidine Scrn (NotDetected) Ur Amphetamines Screen (NotDetected) U Methamphetamines Scrn (NotDetected) U Benzodiazepines Scrn (NotDetected) Urine Cocaine Screen (NotDetected) U Marijuana (THC) Screen (NotDetected) Serum Alcohol mg/dL Disposition Is patient prescribed a controlled substance at d/c from ED?: No <Brett Deng - Last Filed: 08/26/18 02:38> <Gee Haro - Last Filed: 08/26/18 15:44> Clinical Impression: Overdose, Mood disorder, Alcohol intoxication Disposition: TRANSFER TO PSYCH HOSP/UNIT Condition: Fair Referrals: Chicho Sargent MD [Primary Care Provider] - 1-2 days
[2018-08-25 22:18] LABS: ALT 23 U/L (9-52); AST 22 U/L (14-36); Acetaminophen <10.0 ug/mL; African American GFR (CKD) >90 (>60 ml/min/1.73 sqM); Alkaline Phosphatase 66 U/L (38-126); Anion Gap 8 mmol/L; Blood Urea Nitrogen 11 mg/dL (7-17); Calcium 9.1 mg/dL (8.4-10.2); Carbon Dioxide 26 mmol/L (22-30); Chloride 106 mmol/L (98-107); Glucose 103 mg/dL (74-99); Potassium 3.3 mmol/L (3.5-5.1); Salicylate <1.0 mg/dL; Sodium 140 mmol/L (137-145); Total Bilirubin 0.4 mg/dL (0.2-1.3); Total Protein 6.5 g/dL (6.3-8.2)
[2018-08-25 22:19] LABS: Alcohol 152 mg/dL
[2018-08-25 22:31] LABS: Basophils % (A) 1 %; Eosinophils # (A) 0.2 k/uL (0-0.7); Eosinophils % (A) 4 %; HCT 37.9 % (34.0-46.0); HGB 12.9 gm/dL (11.4-16.0); Lymphocytes # (A) 2.1 k/uL (1.0-4.8); Lymphocytes % (A) 43 %; MCH 31.3 pg (25.0-35.0); MCHC 34.2 g/dL (31.0-37.0); MCV 91.6 fL (80.0-100.0); Mean Platelet Volume 7.5; Monocytes # (A) 0.3 k/uL (0-1.0); Monocytes % (A) 6 %; Neutrophils # (A) 2.1 k/uL (1.3-7.7); Neutrophils % (A) 43 %; Platelet Count 180 k/uL (150-450); RBC 4.13 m/uL (3.80-5.40); RDW 14.2 % (11.5-15.5); WBC 4.8 k/uL (3.8-10.6)
[2018-08-26 01:55] LABS: Amphetamine Screen,Urine Not Detected (NotDetected); Barbiturate Screen,Urine Not Detected (NotDetected); Benzodiazepines Screen,Urine Detected (NotDetected); Cocaine Screen,Urine Not Detected (NotDetected); Methadone Screen, Urine Not Detected (NotDetected); Opiate Screen,Urine Not Detected (NotDetected); Oxycodone Screen, Urine Not Detected (NotDetected); Phencyclidine Screen,Urine Not Detected (NotDetected); Tricyclic Antidepressant,Urine Not Detected (NotDetected); Urn Cannabinoid Scrn Not Detected (NotDetected)
[2018-08-26] MEDS ORDERED: POTASSIUM CHLORIDE ER 20 MEQ TAB.ER PO STA (09:37)
[2018-08-26] MEDS ORDERED: METOPROLOL TARTRATE 25 MG TAB PO STA ×2 (09:38→11:36)
[2018-08-26] MEDS ORDERED: DIAZEPAM 2 MG TAB PO STA (09:38)
[2018-08-26] MEDS ORDERED: oxyCODONE-APAP 10-325MG 1 EACH TAB PO STA (09:39)
[2018-08-26 13:29] VITALS: RESP 18
[2018-08-26 16:13] VITALS: BP 122/85; PULSE 79; TEMP 97.9
== END 2018-08-26 16:05 ==
LOC: EC 21:18
DX: T42.6X2A Poisoning by other antiepileptic and sedative-hypnotic drugs, intentional self-harm, initial encounter (principal); F10.129 Alcohol abuse with intoxication, unspecified; F32.9 Major depressive disorder, single episode, unspecified; F17.200 Nicotine dependence, unspecified, uncomplicated; Z79.899 Other long term (current) drug therapy; Z88.5 Allergy status to narcotic agent
CPT/HCPCS: 36415; 93005; 80053; 85025; 81025; 80306; 83520; 99285; G0480 ×2; 80320; 80329

== ENCOUNTER → 2019-10-28 | Outpatient (CLI) | payer MEDICARE, OTHER ==
--- NOTE | 2019-10-29 11:43 | MM ---
Reason for exam: screening (asymptomatic). Last mammogram was performed 2 years and 6 months ago. History: Patient is postmenopausal and has history of endometrial cancer at age 34. Family history of premenopausal breast cancer in mother at age 45. Benign stereotactic core biopsy of the left breast, April 05, 2001. Physical Findings: A clinical breast exam by your physician is recommended on an annual basis and results should be correlated with mammographic findings. MG Screening Mammo w CAD Bilateral CC and MLO view(s) were taken. XCCL view(s) were taken of the right breast. Prior study comparison: April 25, 2017, bilateral MG screening mammo w CAD. November 26, 2014, bilateral MG screening mammo w CAD. There are scattered fibroglandular densities. Benign calcifications. Previous mammotome biopsy in the left breast. There is chronic nodularity in the right breast. No significant changes when compared with prior studies. ASSESSMENT: Benign, BI-RAD 2 RECOMMENDATION: Routine screening mammogram of both breasts in 1 year.
== END | disposition home or self-care (01) ==
LOC: RADMAMWWP 09:52
PROVIDERS: ATTEND Internal Medicine
DX: Z12.31 Encounter for screening mammogram for malignant neoplasm of breast (principal)
CPT/HCPCS: 77067

== ENCOUNTER → 2019-12-30 | Outpatient (CLI) | payer MEDICARE, OTHER ==
--- NOTE | 2019-12-30 10:56 | US ---
EXAMINATION TYPE: US abdomen limited DATE OF EXAM: 12/30/2019 COMPARISON: NONE CLINICAL HISTORY: R68.89 abnormal MRI. Abnormal MRI EXAM MEASUREMENTS: Liver Length: 13.9 cm Gallbladder Wall: .3 cm CBD: .5 cm Right Kidney: 11.5 x 4.7 x 4.8 cm Pancreas: wnl Liver: wnl Gallbladder: wnl Evidence for sonographic Slaughter's sign: No CBD: wnl Right Kidney: wnl IMPRESSION: 1. Normal right upper quadrant ultrasound
== END | disposition home or self-care (01) ==
LOC: RADUSWWP 09:22
PROVIDERS: ATTEND Internal Medicine
DX: R68.89 Other general symptoms and signs (principal)
CPT/HCPCS: 76705

== ENCOUNTER → 2020-02-10 | Outpatient (CLI) | payer MEDICARE ==
--- NOTE | 2020-02-10 11:29 | US ---
EXAMINATION TYPE: US venous doppler duplex LE LT DATE OF EXAM: 02/10/2020 11:10 AM COMPARISON: NONE CLINICAL HISTORY: 54-year-old female R22.42 SWELLING OF LT LOWER LIMB. SIDE PERFORMED: Left TECHNIQUE: The lower extremity deep venous system is examined utilizing real time linear array sonog beau with graded compression, doppler sonography and color-flow sonography. FINDINGS: VESSELS IMAGED: Common Femoral Vein Deep Femoral Vein Greater Saphenous Vein * Femoral Vein Popliteal Vein Small Saphenous Vein * Proximal Calf Veins (* superficial vessels) Assistant Toddler Teacher notes: Patient of large body habitus. Left Leg: Negative for DVT. IMPRESSION: No evidence for DVT within the left lower extremity imaged from the groin to the upper calf.
== END | disposition home or self-care (01) ==
LOC: RADUSWWP 10:41
PROVIDERS: ATTEND Internal Medicine
DX: R22.42 Localized swelling, mass and lump, left lower limb (principal)

== ENCOUNTER → 2021-10-14 | Outpatient (CLI) | payer MEDICARE ==
--- NOTE | 2021-10-14 19:16 | BD ---
EXAMINATION TYPE: Axial Bone Density DATE OF EXAM: 10/14/2021 CLINICAL HISTORY: 56 years year old Female. ICD-10 CODE: N95.1 MENOPAUSAL,M85.88 DISRD OF BONE DENSI TY Height: 64.5 Weight: 247.2 FRAX RISK QUESTIONS: Alcohol (3 or more units per day): NO Family History (Parent hip fracture): YES MOTHER Glucocorticoids (More than 3mos): NO History of Fracture in Adulthood: CSPINE, BILATERAL ANKLES, TIB-FIB Secondary Osteoporosis: 1. Type 1 Diabetes: NO 2. Hyperthyroidism: NO 3. Menopause before 45: YES 4. Malnutrition: NO 5. Chronic liver disease: NO Rheumatoid Arthritis: NO Current Tobacco Use: YES RISK FACTORS HISTORY OF: Hip Fracture (Right/Left): NO Spine Fracture: NO History of Wrist Fracture: NO Surgery to Spine/Hip(right/left)/Wrist (right/left): L4-L5 STENOSIS When: ABOUT 2006 Family History of Osteoporosis: NO Active: NO Diet low in dairy products/other sources of calcium: NO Postmenopausal woman: YES Take estrogen and/or progesterone medications: NO Lost more than 2 inches in height since high school: YES Frequent falls: YES Poor Health: NO Hyperparathyroidism: NO Adrenal Insufficiency: NO MEDICATIONS: Prednisone or other steroids: NO Thyroid Medications: NO Which medication: Osteoporosis MedicationsNO: Additional Medications: VIT D, METOPROLOL, ABILIFY, Additional History: EXAM MEASUREMENTS: Bone mineral density about the R hip (g/cm2): 0.884 Bone mineral density about the L hip (g/cm2): 0.979 T Score values are as follows: -----R Neck: -1.1 -----L Neck: -0.4 -----R Total: 0.0 -----L Total: 0.4 Bone mineral density has: DECREASED 2.5 % since study of: 11/04/2003 Bone mineral density about the L Wrist (g/cm2): 0.449 T Score values are as follows: -----Dist. R+U: -0.3 -----Prox. R+U: 0.1 -----Radius total: -0.1 BASELINE WRIST FRAX%s: The graph provided illustrates a 19% chance for a major osteoporotic fx and a 1.0% chance for the hips probability for fx in 10 years time. IMPRESSION: Osteopenia (T Score between -2.5 and -1). There is slightly increased risk of fracture and the patient may be considered for treatment. Re-Screen 2-5 years. NOTE: T-SCORE=SD OF THE YOUNG ADULT MEAN.
--- NOTE | 2021-10-22 17:41 | MM ---
Reason for Exam: Screening (asymptomatic). Last mammogram was performed 2 year(s) and 0 month(s) ago. Patient History: Menarche at age 11. First Full-Term at age 20. Left ovary removed at age 34. Right ovary removed at age 34. Hysterectomy at age 34. Postmenopausal. Endometrial cancer, age 34. 04/05/2001, Benign Stereotactic Core Biopsy on the left side. Mother had breast cancer, age 45. Risk Values: Alexandrea 5 year model risk: 2.9%. NCI Lifetime model risk: 16.9%. Prior Study Comparison: 11/26/2014 Bilateral Screening Mammogram, [facility]. 04/25/2017 Bilateral Screening Mammogram, [facility]. 10/28/2019 Bilateral Screening Mammogram, [facility]. Tissue Density: The breast tissue is almost entirely fat. Findings: Analyzed By CAD. Right breast biopsy clip. There is no suspicious group of microcalcifications or new suspicious mass in either breast. Overall Assessment: Negative, BI-RAD 1 Management: Screening Mammogram of both breasts in 1 year. A clinical breast exam by your physician is recommended on an annual basis and results should be correlated with mammographic findings. Electronically signed and approved by: Feliz Vasquez DO
== END | disposition home or self-care (01) ==
LOC: RADMAMWWP 15:37
PROVIDERS: ATTEND Internal Medicine
DX: Z12.31 Encounter for screening mammogram for malignant neoplasm of breast (principal); M85.851 Other specified disorders of bone density and structure, right thigh; Z78.0 Asymptomatic menopausal state; Z80.3 Family history of malignant neoplasm of breast
CPT/HCPCS: 77063; 77067; 77080

== ENCOUNTER → 2022-11-23 | Outpatient (CLI) | payer MEDICARE ==
--- NOTE | 2022-11-23 13:41 | XR ---
EXAMINATION TYPE: XR chest 2V DATE OF EXAM: 11/23/2022 COMPARISON: September 18, 2014 HISTORY: Shortness of breath TECHNIQUE: Frontal and lateral views of the chest are obtained. FINDINGS: Scattered senescent parenchymal changes noted. Hyperinflation compatible with COPD. No evidence for infiltrate. No evidence for atelectasis. Heart size is stable. Mediastinal structures are stable and grossly unremarkable. No evidence for hilar prominence. Degenerative changes dorsal spine. IMPRESSION: 1. No evidence for acute pulmonary disease.
== END | disposition home or self-care (01) ==
LOC: RADXRMAIN 13:12
PROVIDERS: ATTEND Internal Medicine
DX: R05.9 Cough, unspecified (principal); R06.02 Shortness of breath
CPT/HCPCS: 71046

== ENCOUNTER → 2024-02-28 | Outpatient (CLI) | payer MEDICARE ==
--- NOTE | 2024-02-28 16:31 | XR ---
EXAMINATION TYPE: XR ribs LT DATE OF EXAM: 02/28/2024 COMPARISON: Chest x-ray November 23, 2022 CLINICAL INDICATION: Female, 58 years old with history of W19; left-sided pain after fall injury. TECHNIQUE: A frontal and oblique images of the left-sided ribs. FINDINGS: Acute minimally displaced fracture involving anterolateral left fifth rib. There is overly ing the left breast implant noted. Surgical change in the mid to lower cervical spine is redemonstrat ed IMPRESSION: Acute minimally displaced fracture involving anterolateral left fifth rib. [facility], , 02/28/2024 4:28 PM
== END | disposition home or self-care (01) ==
LOC: RADXRMAIN 15:58
PROVIDERS: ATTEND Internal Medicine
DX: S22.32XA Fracture of one rib, left side, initial encounter for closed fracture (principal); W19.XXXA Unspecified fall, initial encounter

== ENCOUNTER 2024-04-21 19:37 | Inpatient (IN) | payer MEDICARE ==
--- NOTE | 2024-04-21 20:00 | ED ---
SOB HPI - General Chief Complaint: Shortness of Breath Stated Complaint: SHIRA Time Seen by Provider: 04/21/24 19:42 Source: patient, EMS, RN notes reviewed, old records reviewed Mode of arrival: EMS Limitations: no limitations - History of Present Illness Initial Comments: This is a 58-year-old female to the ER for evaluation of shortness of breath cough congestion and fevers. Patient was sent to us from an urgent care with hypoxic symptoms low oxygen levels. Patient presents with shortness of breath here in the ER no chest pain MD Complaint: shortness of breath, cough Severity: moderate Severity scale (1-10): 4 Quality: dull Consistency: constant Improves With: nothing Worsens With: nothing Context: recent URI, recent illness Associated Symptoms: cough, sputum production Treatments Prior to Arrival: oxygen - Related Data Home Medications Medication Instructions Recorded Confirmed ARIPiprazole [Abilify] 5 mg PO HS 04/22/24 04/22/24 LORazepam [Ativan] 0.5 mg PO BID 04/22/24 04/22/24 Phentermine HCl [Adipex-P] 37.5 mg PO DAILY 04/22/24 04/22/24 Pravastatin Sodium [Pravachol] 20 mg PO DAILY 04/22/24 04/22/24 Pregabalin [Lyrica] 100 mg PO BID 04/22/24 04/22/24 Valsartan [Diovan] 80 mg PO DAILY 04/22/24 04/22/24 traZODone HCL [Desyrel] 50 mg PO HS 04/22/24 04/22/24 Previous Rx's Medication Instructions Recorded Albuterol Nebulized [Ventolin 2.5 mg INHALATION RT-QID 30 Days 04/24/24 Nebulized] #360 ml Budesonide-Formot 160-4.5 Mcg 2 puff INHALATION RT-BID 30 Days 04/24/24 [Symbicort 160-4.5 Mcg Inhaler] #120 each Metoprolol Tartrate [Lopressor] 50 mg PO BID 30 Days #60 tab 04/24/24 Nicotine 14Mg/24Hr Patch [Habitrol] 1 patch TRANSDERM DAILY 30 Days 04/24/24 #30 patch Oseltamivir [Tamiflu] 75 mg PO Q12HR 3 Days #6 cap 04/24/24 predniSONE 10 mg PO DAILY 12 Days #30 tab 04/24/24 Allergies Allergy/AdvReac Type Severity Reaction Status Date / Time morphine Allergy Anaphylaxis Verified 04/22/24 08:30 Review of Systems ROS Statement: Those systems with pertinent positive or pertinent negative responses have been documented in the HPI. ROS Other: All systems not noted in ROS Statement are negative. Past Medical History Past Medical History: Hypertension, Osteoarthritis (OA) Additional Past Medical History / Comment(s): Per patient aortic aneurism History of Any Multi-Drug Resistant Organisms: None Reported Past Surgical History: Back Surgery, Hysterectomy, Orthopedic Surgery Additional Past Surgical History / Comment(s): 03/02/16-right knee cap reconstruction. neck 3x-crushed c7= has 10 screws, 2 rods, and a cage. 17 screws and plate in the right lower leg. Cervial surg, knee surg Past Anesthesia/Blood Transfusion Reactions: Motion Sickness Past Psychological History: No Psychological Hx Reported Smoking Status: Current every day smoker Past Alcohol Use History: Abuse, Daily Past Drug Use History: None Reported - Past Family History Mother Family Medical History: Congestive Heart Failure (CHF) Father Family Medical History: Cancer, Respiratory Disorder Additional Family Medical History / Comment(s): emphasema and lung cancer General Exam Limitations: no limitations General appearance: alert, in no apparent distress Head exam: Present: atraumatic, normocephalic, normal inspection Eye exam: Present: normal appearance, PERRL, EOMI. Absent: scleral icterus, co njunctival injection, periorbital swelling ENT exam: Present: normal exam, mucous membranes moist Neck exam: Present: normal inspection. Absent: tenderness, meningismus, lymphadenopathy Respiratory exam: Present: normal lung sounds bilaterally. Absent: respiratory distress, wheezes, rales, rhonchi, stridor Cardiovascular Exam: Present: regular rate, normal rhythm, normal heart sounds. Absent: systolic murmur, diastolic murmur, rubs, gallop, clicks GI/Abdominal exam: Present: soft, normal bowel sounds. Absent: distended, tenderness, guarding, rebound, rigid Extremities exam: Present: normal inspection, full ROM, normal capillary refill. Absent: tenderness, pedal edema, joint swelling, calf tenderness Back exam: Present: normal inspection Neurological exam: Present: alert, oriented X3, CN II-XII intact Psychiatric exam: Present: normal affect, normal mood Skin exam: Present: warm, dry, intact, normal color. Absent: rash Course Vital Signs 04/21/24 04/21/24 04/21/24 19:40 21:01 21:06 Temperature 98.7 F Pulse Rate 86 89 88 Respiratory 22 22 Rate Blood Pressure 156/84 133/75 O2 Sat by Pulse 98 94 L Oximetry 04/21/24 04/21/24 04/21/24 21:32 22:07 22:29 Temperature Pulse Rate 81 88 Respiratory 22 Rate Blood Pressure 123/72 O2 Sat by Pulse 90 L 93 L Oximetry 04/21/24 04/22/24 04/22/24 22:33 00:05 01:33 Temperature 98.1 F Pulse Rate 88 81 73 Respiratory 20 20 Rate Blood Pressure 125/84 112/68 O2 Sat by Pulse 94 L 95 Oximetry 04/22/24 04/22/24 04/22/24 02:17 04:16 05:22 Temperature Pulse Rate 66 62 Respiratory 19 18 Rate Blood Pressure 109/70 124/81 O2 Sat by Pulse 97 98 97 Oximetry 04/22/24 04/22/24 04/22/24 05:38 07:45 08:09 Temperature 97.9 F Pulse Rate 62 60 Respiratory 18 Rate Blood Pressure 140/89 O2 Sat by Pulse 97 94 L 94 L Oximetry 04/22/24 04/22/24 04/22/24 08:14 09:25 10:11 Temperature Pulse Rate 67 71 77 Respiratory 20 20 Rate Blood Pressure 126/62 O2 Sat by Pulse 92 L 93 L Oximetry 04/22/24 04/22/24 04/22/24 11:17 11:25 13:36 Temperature Pulse Rate 74 77 107 H Respiratory 20 Rate Blood Pressure 119/89 O2 Sat by Pulse 95 Oximetry 04/22/24 04/22/24 04/22/24 15:27 15:32 15:54 Temperature 98.2 F Pulse Rate 82 84 57 L Respiratory 22 Rate Blood Pressure 119/76 O2 Sat by Pulse 97 Oximetry 04/22/24 04/22/24 04/22/24 18:08 20:04 20:16 Temperature Pulse Rate 65 87 90 Respiratory 20 Rate Blood Pressure 130/84 O2 Sat by Pulse 97 Oximetry 04/22/24 04/22/24 04/23/24 20:57 22:17 00:16 Temperature 98.0 F 97.8 F 98.7 F Pulse Rate 58 L 52 L 44 L Respiratory 18 18 16 Rate Blood Pressure 115/66 113/76 136/83 O2 Sat by Pulse 96 97 98 Oximetry - Reevaluation(s) Reevaluation #1: 04/21/24 22:11 Medical records reviewed Reevaluation #2: 04/21/24 22:12 No improvement here in the ER patient remains hypoxic Patient requiring oxygen tried to take patient off oxygen here in the ER without ability to do so Reevaluation #3: 04/21/24 22:12 Patient informed of results and questions answered Reevaluation #4: Was pt. sent in by a medical professional or institution (MICHAEL Aguilar, FACILITY MECHANIC, urgent care, hospital, or long-term...) When possible be specific @ -no Did you speak to anyone other than the patient for history (EMS, parent, family, police, friend...)? What history was obtained from this source @ -no Did you review nursing and triage notes (agree or disagree)? Why? @ -agree Are old charts reviewed (outside hosp., previous admission, EMS record, old EKG, old radiological studies, urgent care reports/EKG's, long-term records)? Report findings @ -yes Differential Diagnosis (chest pain, altered mental status, abdominal pain women, abdominal pain men, vaginal bleeding, weakness, fever, dyspnea, syncope, headache, dizziness, GI bleed, back pain, seizure, CVA, palpatations, mental health, musculoskeletal)? @ -prior EKG interpreted by me (3pts min.). @ -yes X-rays interpreted by me (1pt min.). @ -yes negative for acute disease CT interpreted by me (1pt min.). @ -Yes negative for acute disease U/S interpreted by me (1pt. min.). @ -no What testing was considered but not performed or refused? (CT, X-rays, U/S, labs)? Why? @ -none What meds were considered but not given or refused? Why? @ -none Did you discuss the management of the patient with other professionals (professionals i.e. MICHAEL Aguilar, FACILITY MECHANIC, lab, RT, psych nurse, manager social, life cycle assessment analyst, teacher, physics technical officer, home health care case manager)? Give summary @ -no Was smoking cessation discussed for >3mins.? @ -no Was critical care preformed (if so, how long)? @ -yes31 Were there social determinants of health that impacted care today? How? (Homeles sness, low income, unemployed, alcoholism, drug addiction, transportation, low edu. Level, literacy, decrease access to med. care, nursing home, rehab)? @ -none Was there de-escalation of care discussed even if they declined (Discuss DNR or withdrawal of care, Hospice)? DNR status @ -no What co-morbidities impacted this encounter? (DM, HTN, Smoking, COPD, CAD, Cancer, CVA, ARF, Chemo, Hep., AIDS, mental health diagnosis, sleep apnea, morbid obesity)? @ -none Was patient admitted / discharged? Hospital course, mention meds given and route, prescriptions, significant lab abnormalities, going to OR and other pertinent info. @ - 58 female to ER for evaluation. Patient went to urgent care for cough congestion and fever, sent to ER for hypoxia remains hypoxic without supplemental O2 here in the ER positive fever positive influenza CTA negative for PE checks x-ray also negative Admitted Undiagnosed new problem with uncertain prognosis? @ -no Drug Therapy requiring intensive monitoring for toxicity (Heparin, Nitro, Insulin, Cardizem)? @ -no Were any procedures done? @ -no Diagnosis/symptom? @ -Flu with hypoxia Acute, or Chronic, or Acute on Chronic? @ -Acute Uncomplicated (without systemic symptoms) or Complicated (systemic symptoms)? @ -Complicated Side effects of treatment? @ -no Exacerbation, Progression, or Severe Exacerbation? @ -exacerbation Poses a threat to life or bodily function? How? (Chest pain, [place], [place], pneumonia, PE, COPD, DKA, ARF, appy, cholecystitis, CVA, Diverticulitis, Homicidal, Suicidal, threat to staff... and all critical care pts) @ -yes hypoxic respiratory distress Reevaluation #5: Differential Dyspnea: Coronary syndrome, arrhythmia, tamponade, asthma, COPD, pulmonary embolism, pneumonia, pneumothorax, pulmonary effusion, anaphylaxis, diabetic ketoacidosis, flailed chest, pulmonary contusion, diaphragmatic rupture, anemia, neuromuscular, this is not meant to be an all-inclusive list. - Consultations Consultation #1: Spoke with admitting physicians who agreed to admit this patient Medical Decision Making - Medical Decision Making 58 female to ER for evaluation. Patient went to urgent care for cough congestion and fever, sent to ER for hypoxia remains hypoxic without supplemental O2 here in the ER positive fever positive influenza CTA negative for PE checks x-ray also negative - Lab Data Result diagrams: 04/24/24 05:54 04/24/24 05:54 Lab Results 04/21/24 04/21/24 04/21/24 Range/Units 20:01 20:01 20:01 WBC 4.3 (3.8-10.6) k/uL RBC 4.29 (3.80-5.40) m/uL Hgb 12.7 (11.4-16.0) gm/dL Hct 39.3 (34.0-46.0) % MCV 91.8 (80.0-100.0) fL MCH 29.7 (25.0-35.0) pg MCHC 32.4 (31.0-37.0) g/dL RDW 13.2 (11.5-15.5) % Plt Count 174 (150-450) k/uL MPV 7.4 Neutrophils % 77 % Lymphocytes % 13 % Monocytes % 7 % Eosinophils % 1 % Basophils % 1 % Neutrophils # 3.3 (1.3-7.7) k/uL Lymphocytes # 0.6 L (1.0-4.8) k/uL Monocytes # 0.3 (0-1.0) k/uL Eosinophils # 0.0 (0-0.7) k/uL Basophils # 0.0 (0-0.2) k/uL PT 11.2 (10.0-12.5) sec INR 1.0 (<1.2) APTT 27.6 (22.0-30.0) sec D-Dimer (<0.60) mg/L FEU Sodium 132 L (137-145) mmol/L Potassium 3.3 L (3.5-5.1) mmol/L Chloride 98 (98-107) mmol/L Carbon Dioxide 26 (22-30) mmol/L Anion Gap 8 mmol/L BUN 11 (7-17) mg/dL Creatinine 0.53 (0.52-1.04) mg/dL Est GFR (CKD-EPI)AfAm >90 (>60 ml/min/1.73 sqM) Est GFR (CKD-EPI)NonAf >90 (>60 ml/min/1.73 sqM) Glucose 126 H (74-99) mg/dL Plasma Lactic Acid [place] (0.7-2.0) mmol/L Calcium 8.8 (8.4-10.2) mg/dL Magnesium 1.8 (1.6-2.3) mg/dL Total Bilirubin 0.5 (0.2-1.3) mg/dL AST 26 (14-36) U/L ALT 24 (4-34) U/L Alkaline Phosphatase 104 (38-126) U/L Troponin I (0.000-0.034) ng/mL NT-Pro-B Natriuret Pep 506 pg/mL Total Protein 6.7 (6.3-8.2) g/dL Albumin 4.1 (3.5-5.0) g/dL Influenza Type A (PCR) (Not Detectd) Influenza Type B (PCR) (Not Detectd) RSV (PCR) (Not Detectd) SARS-CoV-2 (PCR) (Not Detectd) 04/21/24 04/21/24 04/21/24 Range/Units 20:01 20:01 20:01 WBC (3.8-10.6) k/uL RBC (3.80-5.40) m/uL Hgb (11.4-16.0) gm/dL Hct (34.0-46.0) % MCV (80.0-100.0) fL MCH (25.0-35.0) pg MCHC (31.0-37.0) g/dL RDW (11.5-15.5) % Plt Count (150-450) k/uL MPV Neutrophils % % Lymphocytes % % Monocytes % % Eosinophils % % Basophils % % Neutrophils # (1.3-7.7) k/uL Lymphocytes # (1.0-4.8) k/uL Monocytes # (0-1.0) k/uL Eosinophils # (0-0.7) k/uL Basophils # (0-0.2) k/uL PT (10.0-12.5) sec INR (<1.2) APTT (22.0-30.0) sec D-Dimer (<0.60) mg/L FEU Sodium (137-145) mmol/L Potassium (3.5-5.1) mmol/L Chloride (98-107) mmol/L Carbon Dioxide (22-30) mmol/L Anion Gap mmol/L BUN (7-17) mg/dL Creatinine (0.52-1.04) mg/dL Est GFR (CKD-EPI)AfAm (>60 ml/min/1.73 sqM) Est GFR (CKD-EPI)NonAf (>60 ml/min/1.73 sqM) Glucose (74-99) mg/dL Plasma Lactic Acid [place] 1.0 (0.7-2.0) mmol/L Calcium (8.4-10.2) mg/dL Magnesium (1.6-2.3) mg/dL Total Bilirubin (0.2-1.3) mg/dL AST (14-36) U/L ALT (4-34) U/L Alkaline Phosphatase (38-126) U/L Troponin I <0.012 (0.000-0.034) ng/mL NT-Pro-B Natriuret Pep pg/mL Total Protein (6.3-8.2) g/dL Albumin (3.5-5.0) g/dL Influenza Type A (PCR) Detected A (Not Detectd) Influenza Type B (PCR) Not Detected (Not Detectd) RSV (PCR) Not Detected (Not Detectd) SARS-CoV-2 (PCR) Not Detected (Not Detectd) 04/21/24 Range/Units 20:01 WBC (3.8-10.6) k/uL RBC (3.80-5.40) m/uL Hgb (11.4-16.0) gm/dL Hct (34.0-46.0) % MCV (80.0-100.0) fL MCH (25.0-35.0) pg MCHC (31.0-37.0) g/dL RDW (11.5-15.5) % Plt Count (150-450) k/uL MPV Neutrophils % % Lymphocytes % % Monocytes % % Eosinophils % % Basophils % % Neutrophils # (1.3-7.7) k/uL Lymphocytes # (1.0-4.8) k/uL Monocytes # (0-1.0) k/uL Eosinophils # (0-0.7) k/uL Basophils # (0-0.2) k/uL PT (10.0-12.5) sec INR (<1.2) APTT (22.0-30.0) sec D-Dimer 0.70 H (<0.60) mg/L FEU Sodium (137-145) mmol/L Potassium (3.5-5.1) mmol/L Chloride (98-107) mmol/L Carbon Dioxide (22-30) mmol/L Anion Gap mmol/L BUN (7-17) mg/dL Creatinine (0.52-1.04) mg/dL Est GFR (CKD-EPI)AfAm (>60 ml/min/1.73 sqM) Est GFR (CKD-EPI)NonAf (>60 ml/min/1.73 sqM) Glucose (74-99) mg/dL Plasma Lactic Acid [place] (0.7-2.0) mmol/L Calcium (8.4-10.2) mg/dL Magnesium (1.6-2.3) mg/dL Total Bilirubin (0.2-1.3) mg/dL AST (14-36) U/L ALT (4-34) U/L Alkaline Phosphatase (38-126) U/L Troponin I (0.000-0.034) ng/mL NT-Pro-B Natriuret Pep pg/mL Total Protein (6.3-8.2) g/dL Albumin (3.5-5.0) g/dL Influenza Type A (PCR) (Not Detectd) Influenza Type B (PCR) (Not Detectd) RSV (PCR) (Not Detectd) SARS-CoV-2 (PCR) (Not Detectd) - EKG Data -: EKG Interpreted by Me (EKG is sinus 85 [place] 182 QRS 93 QTc 408) - Radiology Data Radiology results: report reviewed (Chest x-ray negative for acute disease CTA chest negative for acute disease), image reviewed Critical Care Time Critical Care Time: Yes Total Critical Care Time: 31 Disposition Clinical Impression: Hypoxia, Influenza A Disposition: ADMITTED IP TO THIS HOSP Condition: Fair Is patient prescribed a controlled substance at d/c from ED?: No Time of Disposition: 22:00
[2024-04-21 20:20] LABS: Basophils % (A) 1 %; Eosinophils % (A) 1 %; HCT 39.3 % (34.0-46.0); HGB 12.7 gm/dL (11.4-16.0); Lymphocytes # (A) 0.6 k/uL (1.0-4.8); Lymphocytes % (A) 13 %; MCH 29.7 pg (25.0-35.0); MCHC 32.4 g/dL (31.0-37.0); MCV 91.8 fL (80.0-100.0); Mean Platelet Volume 7.4; Monocytes # (A) 0.3 k/uL (0-1.0); Monocytes % (A) 7 %; Neutrophils # (A) 3.3 k/uL (1.3-7.7); Neutrophils % (A) 77 %; Platelet Count 174 k/uL (150-450); RBC 4.29 m/uL (3.80-5.40); RDW 13.2 % (11.5-15.5); WBC 4.3 k/uL (3.8-10.6)
[2024-04-21] MEDS: IBUPROFEN 800 MG TAB PO STA (20:20)
[2024-04-21] MEDS: ACETAMINOPHEN TAB 500 MG TAB PO STA (20:20)
[2024-04-21] MEDS: LACTATED RINGERS 1,000 ML IV ONE (20:21)
[2024-04-21 20:33] LABS: Partial Thromboplastin Time 27.6 sec (22.0-30.0); Prothrombin Time 11.2 sec (10.0-12.5)
--- NOTE | 2024-04-21 20:42 | XR ---
EXAMINATION TYPE: XR chest 2V DATE OF EXAM: 04/21/2024 8:36 PM COMPARISON: Chest radiographs from 02/28/2024 CLINICAL INDICATION: Female, 58 years old with history of difficulty breathing; [facility] TECHNIQUE: XR chest 2V Frontal and lateral views of the chest. FINDINGS: Lungs/Pleura: There is no evidence of pleural effusion, focal consolidation, or pneumothorax. Pulmonary vascularity: Unremarkable. Heart/mediastinum: Cardiomediastinal silhouette is unremarkable. Musculoskeletal: No acute osseous pathology. There is fixation hardware in the lower cervical spine. Other findings: Right upper quadrant peripherally calcified pseudocyst. IMPRESSION: No acute cardiopulmonary disease/process. [facility], , 04/21/2024 8:40 PM
[2024-04-21 20:48] LABS: ALT 24 U/L (4-34); AST 26 U/L (14-36); African American GFR (CKD) >90 (>60 ml/min/1.73 sqM); Albumin 4.1 g/dL (3.5-5.0); Alkaline Phosphatase 104 U/L (38-126); Anion Gap 8 mmol/L; Blood Urea Nitrogen 11 mg/dL (7-17); Calcium 8.8 mg/dL (8.4-10.2); Carbon Dioxide 26 mmol/L (22-30); Chloride 98 mmol/L (98-107); Glucose 126 mg/dL (74-99); Magnesium 1.8 mg/dL (1.6-2.3); Non-African American GFR(CKD) >90 (>60 ml/min/1.73 sqM); Potassium 3.3 mmol/L (3.5-5.1); Sodium 132 mmol/L (137-145); Total Bilirubin 0.5 mg/dL (0.2-1.3); Total Protein 6.7 g/dL (6.3-8.2)
[2024-04-21 20:56] LABS: NT-Pro-B-Type Natriuretic Pept 506 pg/mL
[2024-04-21] MEDS: IPRATROPIUM-ALBUTEROL 3 ML NEB INHALATION STA ×2 (20:59→22:27)
[2024-04-21 21:11] LABS: Influenza A Detected (Not Detectd); Influenza B Not Detected (Not Detectd); RSV Not Detected (Not Detectd)
--- NOTE | 2024-04-21 21:57 | CT ---
EXAMINATION TYPE: CT angio chest DATE OF EXAM: 04/21/2024 9:48 PM COMPARISON: Chest radiograph from same day. CLINICAL INDICATION: Female, 58 years old with history of PE; Pt presents via EMS from for c/o SHIRA that has been worsening since yesterday. Denies Chest pains. TECHNIQUE/CONTRAST: CTA scan of the thorax is performed with IV Contrast, patient injected with 100ml mL of Isovue 370, M IP images are created and reviewed these are created on a separate workstation.. CT DLP: 425.7 mGycm, Automated exposure control for dose reduction was used. FINDINGS: Lungs/Pleura: No evidence of focal consolidation, pleural effusion or pneumothorax. 2 mm right upper lobe pulmonary nodule series 402 image 100. Airway: Large airways are patent. Heart: Size within normal limits. No significant coronary artery calcifications. Vasculature: There is no evidence for a filling defect within the pulmonary vasculature to suggest [place] pulmonary embolism. The pulmonary artery is of normal size. Mediastinum: No gross evidence of adenopathy. Musculoskeletal: Mild disc degeneration changes are present throughout the thoracolumbar spine second gerri to osteophyte formation and facet joint arthropathy. Right-sided anterior rib fractures with some callus formation present. No acute fractures definitively visualized. Left anterior rib subacute to chronic fracture also noted to rib levels. Soft Tissues/lymph nodes: Unremarkable. Lower neck: No significant findings. Upper Abdomen: Peripherally calcified splenic pseudocyst. Nodular changes to left adrenal gland likel y representing adenomatous hypertrophy versus underlying small adrenal adenomas. IMPRESSION: 1. No evidence of pulmonary embolism. No acute thoracic process. 2. Splenic pseudocyst. 3. Bilateral chronic appearing rib fractures. Follow up recommendations for incidental pulmonary nodules, if there are any, are per [employer] [employer] or [place] [employer]. https://radiopaedia.org/articles/mmwyylcyjz-[email or web address]-[email or web address]?lang=us [facility], , 04/21/2024 9:55 PM
[2024-04-21] MEDS: DEXAMETHASONE SOD PHOSPHATE 10 MG/ML 1 ML VIAL IVP STA (22:27)
[2024-04-21] MEDS ORDERED: NALOXONE 0.4 MG/ML 1 ML VIAL IV PRN (22:31)
[2024-04-21] MEDS ORDERED: ONDANSETRON 4 MG/2 ML VIAL IVP PRN (22:31)
[2024-04-21] MEDS: SODIUM CHLORIDE 0.9% 1,000 ML IV SCH (22:57)
[2024-04-21] MEDS ORDERED: IPRATROPIUM-ALBUTEROL 3 ML NEB INHALATION PRN (23:27)
[2024-04-22] MEDS ORDERED: ALBUTEROL NEBULIZED 2.5 MG/3 ML INHALATION SCH
[2024-04-22] MEDS: IPRATROPIUM-ALBUTEROL 3 ML NEB INHALATION SCH (08:06)
[2024-04-22 08:29] LABS: African American GFR (CKD) >90 (>60 ml/min/1.73 sqM); Albumin 3.8 g/dL (3.5-5.0); Anion Gap 7 mmol/L; Blood Urea Nitrogen 10 mg/dL (7-17); Carbon Dioxide 28 mmol/L (22-30); Chloride 105 mmol/L (98-107); Glucose 157 mg/dL (74-99); Non-African American GFR(CKD) >90 (>60 ml/min/1.73 sqM); Phosphorus 3.6 mg/dL (2.5-4.5); Potassium 3.8 mmol/L (3.5-5.1); Sodium 140 mmol/L (137-145); Total Protein 6.2 g/dL (6.3-8.2)
[2024-04-22 08:30] LABS: ALT 23 U/L (4-34); AST 21 U/L (14-36); Alkaline Phosphatase 99 U/L (38-126); Calcium 8.8 mg/dL (8.4-10.2); Magnesium 2.1 mg/dL (1.6-2.3); Total Bilirubin 0.3 mg/dL (0.2-1.3)
[2024-04-22 08:37] LABS: Basophils % (A) 0 %; Eosinophils % (A) 0 %; HCT 39.8 % (34.0-46.0); HGB 12.6 gm/dL (11.4-16.0); Lymphocytes # (A) 0.3 k/uL (1.0-4.8); Lymphocytes % (A) 10 %; MCH 29.4 pg (25.0-35.0); MCHC 31.7 g/dL (31.0-37.0); MCV 92.7 fL (80.0-100.0); Mean Platelet Volume 7.8; Monocytes # (A) 0.1 k/uL (0-1.0); Monocytes % (A) 3 %; Neutrophils # (A) 2.6 k/uL (1.3-7.7); Neutrophils % (A) 87 %; Platelet Count 184 k/uL (150-450); RDW 13.4 % (11.5-15.5)
[2024-04-22] MEDS: PANTOPRAZOLE 40 MG/10 ML VIAL IV SCH (09:21)
[2024-04-22] MEDS: OSELTAMIVIR 75 MG CAP PO SCH (09:27)
[2024-04-22] MEDS: ACETAMINOPHEN TAB 325 MG TAB PO PRN (10:13)
--- NOTE | 2024-04-22 14:03 | P.CNPUL ---
History of Present Illness Consult date: 04/22/24 Requesting physician: Chicho Sargent Reason for consult: COPD, hypoxemia Chief complaint: Shortness of breath, cough, congestion History of present illness: This is a 58-year-old female patient with a known history of hypertension, osteoarthritis, chronic and ongoing tobacco dependence, chronic and ongoing alcohol dependence who presented here to the emergency room yesterday from an urgent care center after being found to have low oxygen levels. She had been having issues with shortness of breath cough congestion and fevers. Chest x-ray reveals no acute pulmonary process. CT angiogram ruled out pulmonary embolism. No acute thoracic process. White count 3.0. Hemoglobin 12.6. Platelets 184. D-dimer 0.70. Sodium 140. Potassium 3.8. Bicarb 28. BUN 10. Creatinine 0.54. Glucose 157. Viral screen positive for influenza A. She is seen today in consultation in the emergency department. She is currently sitting up in a stretcher. Awake and alert in no acute distress. She does have a loose nonproductive cough. She was having complaints of headache. She is maintaining O2 saturations in the mid 90s on 4 L/min per nasal cannula. She has been afebrile. Hemodynamically stable. Review of Systems REVIEW OF SYSTEMS: CONSTITUTIONAL: Denies any recent significant weight loss or weight gain. EYES: Denies change in vision. EARS, NOSE, MOUTH, THROAT: Positive for headaches, denies sore throat. CARDIOVASCULAR: Denies chest pain, palpitations or syncopal episodes. RESPIRATORY: Positive for shortness of breath, cough, congestion no hemoptysis. GASTROINTESTINAL: Denies change in appetite, denies abdominal pain GENITOURINARY: Denies hematuria, denies infections. MUSKULOSKELETAL: Denies pain, denies swelling. INTEGUMENTARY: Denies rash, denies eczema. NEUROLOGICAL: Denies recent memory loss, no recent seizure activity. PSYCHIATRIC: Denies anxiety, denies depression. HEMATOLOGIC/LYMPHATIC: Denies anemia, denies enlarged lymph nodes. Past Medical History Past Medical History: Hypertension, Osteoarthritis (OA) Additional Past Medical History / Comment(s): Per patient aortic aneurism History of Any Multi-Drug Resistant Organisms: None Reported Past Surgical History: Back Surgery, Hysterectomy, Orthopedic Surgery Additional Past Surgical History / Comment(s): 03/02/16-right knee cap reconstruction. neck 3x-crushed c7= has 10 screws, 2 rods, and a cage. 17 screws and plate in the right lower leg. Cervial surg, knee surg Past Anesthesia/Blood Transfusion Reactions: Motion Sickness Past Psychological History: No Psychological Hx Reported Smoking Status: Current every day smoker Past Alcohol Use History: Abuse, Daily Past Drug Use History: None Reported - Past Family History Mother Family Medical History: Congestive Heart Failure (CHF) Father Family Medical History: Cancer, Respiratory Disorder Additional Family Medical History / Comment(s): emphasema and lung cancer Medications and Allergies Home Medications Medication Instructions Recorded Confirmed Type Metoprolol Tartrate [Lopressor] 25 mg PO BID tab 11/18/17 04/22/24 Rx ARIPiprazole [Abilify] 5 mg PO HS 04/22/24 04/22/24 History Ibuprofen [Motrin] 800 mg PO TID 04/22/24 04/22/24 History LORazepam [Ativan] 0.5 mg PO BID 04/22/24 04/22/24 History Phentermine HCl [Adipex-P] 37.5 mg PO DAILY 04/22/24 04/22/24 History Pravastatin Sodium [Pravachol] 20 mg PO DAILY 04/22/24 04/22/24 History Pregabalin [Lyrica] 100 mg PO BID 04/22/24 04/22/24 History Valsartan [Diovan] 80 mg PO DAILY 04/22/24 04/22/24 History traZODone HCL [Desyrel] 50 mg PO HS 04/22/24 04/22/24 History Allergies Allergy/AdvReac Type Severity Reaction Status Date / Time morphine Allergy Anaphylaxis Verified 04/22/24 08:30 Physical Exam Vitals: Vital Signs Temp Pulse Resp BP Pulse Ox 04/22/24 13:36 107 H 20 119/89 95 04/22/24 11:17 74 04/22/24 10:11 77 20 93 L 04/22/24 09:25 71 20 126/62 92 L 04/22/24 08:14 67 04/22/24 08:09 60 94 L 04/22/24 07:45 97.9 F 62 18 140/89 94 L 04/22/24 05:38 97 04/22/24 05:22 97 04/22/24 04:16 62 18 124/81 98 04/22/24 02:17 66 19 109/70 97 04/22/24 01:33 73 20 112/68 95 04/22/24 00:05 98.1 F 81 20 125/84 94 L 04/21/24 22:33 88 04/21/24 22:29 88 04/21/24 22:07 81 22 123/72 93 L 04/21/24 21:32 90 L 04/21/24 21:06 88 04/21/24 21:01 89 22 133/75 94 L 04/21/24 19:40 98.7 F 86 22 156/84 98 Intake and Output 04/21/24 04/22/24 04/22/24 22:59 06:59 14:59 Other: Weight 108.862 kg GENERAL EXAM: Alert, pleasant 58-year-old female, on 4 L nasal cannula, fairly comfortable in no apparent distress. HEAD: Normocephalic. EYES: Normal reaction of pupils, equal size. NOSE: Clear with pink turbinates. THROAT: No erythema or exudates. NECK: No masses, no JVD. CHEST: No chest wall deformity. LUNGS: Equal air entry with bilateral end expiratory wheeze, few scattered rhonchi. CVS: S1 and S2 normal with no audible murmur, regular rhythm. ABDOMEN: No hepatosplenomegaly, normal bowel sounds, no guarding or rigidity. SPINE: No scoliosis or deformity SKIN: No rashes CENTRAL NERVOUS SYSTEM: No focal deficits, tone is normal in all 4 extremities. EXTREMITIES: There is no peripheral edema. No clubbing, no cyanosis. Peripheral pulses are intact. Results - Laboratory Findings CBC and BMP: 04/22/24 07:41 04/22/24 07:41 PT/INR, D-dimer PT 11.2 sec (10.0-12.5) 04/21/24 20:01 INR 1.0 (<1.2) 04/21/24 20:01 D-Dimer 0.70 mg/L FEU (<0.60) H 04/21/24 20:01 Abnormal lab findings: Abnormal Labs 04/21/24 04/21/24 04/21/24 20:01 20:01 20:01 WBC Lymphocytes # 0.6 L D-Dimer Sodium 132 L Potassium 3.3 L Creatinine Glucose 126 H Total Protein Influenza Type A (PCR) Detected A 04/21/24 04/22/24 04/22/24 20:01 07:41 07:41 WBC 3.0 L Lymphocytes # 0.3 L D-Dimer 0.70 H Sodium Potassium Creatinine 0.45 L Glucose 157 H Total Protein 6.2 L Influenza Type A (PCR) - Diagnostic Findings Chest x-ray: image reviewed CT scan - chest: image reviewed Assessment and Plan Assessment: Acute hypoxic respiratory failure secondary to an acute exacerbation of chronic obstructive pulmonary disease complicated by influenza A infection Acute influenza A infection Acute COPD exacerbation Chronic and ongoing tobacco dependence of 40 years Chronic neck and back pain Hypertension Hyperlipidemia Osteoarthritis History of daily alcohol use Plan: The patient was seen and evaluated Imaging, labs and medications reviewed Initiated on DuoNeb and elations, Symbicort Initiated on Solu-Medrol Initiated on Tamiflu Lovenox for DVT prophylaxis Educated regarding smoking cessation NicoDerm patch will be offered Titrate down the FiO2 as tolerated We will continue to follow and make further recommendations based on her clinical status I have personally seen and examined the patient, performed the documentation and the assessment and plan as written. Number of minutes spent on the visit: 20 Dictation was produced using [employer] dictation software. Please excuse any grammatical, word or spelling errors.
[2024-04-22] MEDS: METOPROLOL TARTRATE 50 MG TAB PO STA (14:30)
[2024-04-22] MEDS: methylPREDNISolone SOD SUCCI 125 MG/2 ML VIAL IV SCH (14:30)
--- NOTE | 2024-04-22 19:23 | P.HPIM ---
History of Present Illness H&P Date: 04/22/24 Alberta Carter, is a 58-year-old female who presented to [facility] emergency room with a chief complaint of worsening shortness of breath She was evaluated in the emergency room vital examination on presentation revealed a temperature of 98.7 pulse 86 respiration 22 blood pressure 156/84 pulse ox 94% on 4 L nasal cannula Laboratory data revealed a white blood count of 4.3 hemoglobin 12.7 platelet count 174 D-dimer 0.7 sodium 132 potassium 3.3 BUN 11 creatinine 0.53 influenza A PCR was positive Testing in the emergency room revealed chest x-ray revealed no acute cardiopulmonary disease, CT angiogram of the chest revealed no evidence of pulmonary embolism Patient was admitted to medical floor for further evaluation and treatment Past Medical History Past Medical History: Hypertension, Osteoarthritis (OA) Additional Past Medical History / Comment(s): Per patient aortic aneurism History of Any Multi-Drug Resistant Organisms: None Reported Past Surgical History: Back Surgery, Hysterectomy, Orthopedic Surgery Additional Past Surgical History / Comment(s): 03/02/16-right knee cap reconstruction. neck 3x-crushed c7= has 10 screws, 2 rods, and a cage. 17 screws and plate in the right lower leg. Cervial surg, knee surg Past Anesthesia/Blood Transfusion Reactions: Motion Sickness Past Psychological History: No Psychological Hx Reported Smoking Status: Current every day smoker Past Alcohol Use History: Abuse, Daily Past Drug Use History: None Reported - Past Family History Mother Family Medical History: Congestive Heart Failure (CHF) Father Family Medical History: Cancer, Respiratory Disorder Additional Family Medical History / Comment(s): emphasema and lung cancer Medications and Allergies Home Medications Medication Instructions Recorded Confirmed Type Metoprolol Tartrate [Lopressor] 25 mg PO BID tab 11/18/17 04/22/24 Rx ARIPiprazole [Abilify] 5 mg PO HS 04/22/24 04/22/24 History Ibuprofen [Motrin] 800 mg PO TID 04/22/24 04/22/24 History LORazepam [Ativan] 0.5 mg PO BID 04/22/24 04/22/24 History Phentermine HCl [Adipex-P] 37.5 mg PO DAILY 04/22/24 04/22/24 History Pravastatin Sodium [Pravachol] 20 mg PO DAILY 04/22/24 04/22/24 History Pregabalin [Lyrica] 100 mg PO BID 04/22/24 04/22/24 History Valsartan [Diovan] 80 mg PO DAILY 04/22/24 04/22/24 History traZODone HCL [Desyrel] 50 mg PO HS 04/22/24 04/22/24 History Allergies Allergy/AdvReac Type Severity Reaction Status Date / Time morphine Allergy Anaphylaxis Verified 04/22/24 08:30 Physical Exam Vitals: Vital Signs Temp Pulse Resp BP Pulse Ox 04/22/24 18:08 65 20 130/84 97 04/22/24 15:54 98.2 F 57 L 22 119/76 97 04/22/24 15:32 84 04/22/24 15:27 82 04/22/24 13:36 107 H 20 119/89 95 04/22/24 11:25 77 04/22/24 11:17 74 04/22/24 10:11 77 20 93 L 04/22/24 09:25 71 20 126/62 92 L 04/22/24 08:14 67 04/22/24 08:09 60 94 L 04/22/24 07:45 97.9 F 62 18 140/89 94 L 04/22/24 05:38 97 04/22/24 05:22 97 04/22/24 04:16 62 18 124/81 98 04/22/24 02:17 66 19 109/70 97 04/22/24 01:33 73 20 112/68 95 04/22/24 00:05 98.1 F 81 20 125/84 94 L 04/21/24 22:33 88 04/21/24 22:29 88 04/21/24 22:07 81 22 123/72 93 L 04/21/24 21:32 90 L 04/21/24 21:06 88 04/21/24 21:01 89 22 133/75 94 L 04/21/24 19:40 98.7 F 86 22 156/84 98 In general patient is alert and oriented x 3 in no distress HEENT head normocephalic and atraumatic Neck is supple no JVD no goiter no lymphadenopathy no carotid bruit Chest examination revealed the scattered crackles bilaterally with wheezing Cardiac exam reveals regular heart sounds S1 and S2 no gallops no murmurs Abdomen is soft nontender no organomegaly with normal bowel sounds Extremity exam reveals no edema no cyanosis or clubbing Neurological examination reveals no gross focal deficits Results CBC & Chem 7: 04/22/24 07:41 04/22/24 07:41 Labs: Abnormal Lab Results - Last 24 Hours (Table) 04/21/24 04/21/24 04/21/24 Range/Units 20:01 20:01 20:01 WBC (3.8-10.6) k/uL Lymphocytes # 0.6 L (1.0-4.8) k/uL D-Dimer (<0.60) mg/L FEU Sodium 132 L (137-145) mmol/L Potassium 3.3 L (3.5-5.1) mmol/L Creatinine (0.52-1.04) mg/dL Glucose 126 H (74-99) mg/dL Total Protein (6.3-8.2) g/dL Influenza Type A (PCR) Detected A (Not Detectd) 04/21/24 04/22/24 04/22/24 Range/Units 20:01 07:41 07:41 WBC 3.0 L (3.8-10.6) k/uL Lymphocytes # 0.3 L (1.0-4.8) k/uL D-Dimer 0.70 H (<0.60) mg/L FEU Sodium (137-145) mmol/L Potassium (3.5-5.1) mmol/L Creatinine 0.45 L (0.52-1.04) mg/dL Glucose 157 H (74-99) mg/dL Total Protein 6.2 L (6.3-8.2) g/dL Influenza Type A (PCR) (Not Detectd) Assessment and Plan Plan: Acute influenza A infection Acute exacerbation of chronic obstructive pulmonary disease Chronic tobacco use Elevated D-dimer no evidence of pulmonary embolism on CT scan of the chest Underlying history of hypertension Underlying history of hyperlipidemia Underlying history of anxiety disorder Underlying history of depression At this time patient is admitted to medical floor She was started on Tamiflu Pulmonary consultation was requested For DVT prophylaxis subcu Lovenox She was counseled in length in regard to smoking cessation Will follow closely
[2024-04-22] MEDS: SYMBICORT 160-4.5 MCG INHALER INHALATION SCH (20:03)
[2024-04-22] MEDS: LORazepam 0.5 MG TAB PO SCH (20:25)
[2024-04-22] MEDS: METOPROLOL TARTRATE 50 MG TAB PO SCH (20:26)
[2024-04-22] MEDS: PRAVASTATIN SODIUM 20 MG TAB PO SCH (20:26)
[2024-04-22] MEDS: traZODone HCL 50 MG TAB PO SCH (20:27)
[2024-04-22] MEDS: ARIPiprazole 5 MG TAB PO SCH (20:27)
[2024-04-22] MEDS: PREGABALIN 100 MG CAP PO SCH (20:27)
[2024-04-22] MEDS ORDERED: METOPROLOL TARTRATE 25 MG TAB PO SCH (21:00)
[2024-04-22] MEDS: IBUPROFEN 400 MG TAB PO PRN (21:03)
[2024-04-22] MEDS: IBUPROFEN 800 MG TAB PO SCH (21:59)
[2024-04-23 06:19] LABS: Basophils % (A) 0 %; Eosinophils % (A) 0 %; HGB 12.3 gm/dL (11.4-16.0); Lymphocytes # (A) 0.6 k/uL (1.0-4.8); Lymphocytes % (A) 6 %; MCH 29.7 pg (25.0-35.0); MCHC 31.6 g/dL (31.0-37.0); MCV 93.8 fL (80.0-100.0); Mean Platelet Volume 7.9; Monocytes # (A) 0.3 k/uL (0-1.0); Monocytes % (A) 3 %; Neutrophils # (A) 8.2 k/uL (1.3-7.7); Neutrophils % (A) 90 %; Platelet Count 189 k/uL (150-450); RBC 4.15 m/uL (3.80-5.40); RDW 13.5 % (11.5-15.5); WBC 9.1 k/uL (3.8-10.6)
[2024-04-23 06:38] LABS: ALT 24 U/L (4-34); AST 26 U/L (14-36); African American GFR (CKD) >90 (>60 ml/min/1.73 sqM); Albumin 3.4 g/dL (3.5-5.0); Alkaline Phosphatase 88 U/L (38-126); Anion Gap 3 mmol/L; Blood Urea Nitrogen 14 mg/dL (7-17); Calcium 8.7 mg/dL (8.4-10.2); Carbon Dioxide 29 mmol/L (22-30); Chloride 106 mmol/L (98-107); Glucose 154 mg/dL (74-99); Non-African American GFR(CKD) >90 (>60 ml/min/1.73 sqM); Potassium 3.9 mmol/L (3.5-5.1); Sodium 138 mmol/L (137-145); Total Bilirubin 0.2 mg/dL (0.2-1.3); Total Protein 5.9 g/dL (6.3-8.2)
[2024-04-23] MEDS ORDERED: guaiFENesin-Coden 100-10MG/5ML 10 ML CUP PO PRN (09:01)
[2024-04-23] MEDS: ENOXAPARIN 40 MG/0.4 ML SYRINGE SQ SCH (09:21)
[2024-04-23] MEDS: NICOTINE 14MG/24HR PATCH TRANSDERM SCH (09:22)
[2024-04-23] MEDS: VALSARTAN 80 MG TAB PO SCH (09:22)
[2024-04-23] MEDS: guaiFENesin-DM 100-10MG/5ML 10 ML CUP PO PRN (09:45)
--- NOTE | 2024-04-23 10:29 | P.CRDCN ---
History of Present Illness Consult date: 04/23/24 Reason for Consult (text): Abnormal EKG, chest pain History of present illness: This is a 58-year-old female with past medical history of hyperlipidemia, hypertension, aneurysm of the ascending aorta measuring 4 cm, tobacco use and dependence, alcohol dependence. Patient previously was seen in the office by Dr. Carson in 2019. We have been asked to evaluate the patient for abnormal EKG and chest pain. Patient initially presented to urgent care center and found to have low pulse ox and was sent to the hospital for further evaluati on. Patient presented initially for shortness of breath cough and fevers. Patient tested positive for influenza A and was started on Tamiflu and admitted to the observation unit. And patient second EKG she was found to be in atrial flutter. Yesterday, we did resume her on her beta-az and increased dose of 50 mg twice daily. Patient was last seen in the office with Dr. Carson in 2019 and at that time the plan was for CT angiogram of the chest to check the thoracic aortic aneurysm and follow-up in 6 months. -EKG: #1 sinus rhythm. #2 atrial flutter 151 bpm -Chest x-ray: No acute process. -CTA chest no evidence of pulmonary embolism. No acute thoracic process. Splenic pseudocyst. Bilateral chronic appearing rib fractures. Incidental pulmonary nodules. -Laboratory studies: -Home cardiac medications: Metoprolol tartrate 25 mg twice daily, pravastatin 20 mg daily, valsartan 80 mg daily -Echocardiogram performed in 2018 at [facility] revealed EF 55 to 60%, mild mitral regurgitation, mild tricuspid regurgitation aortic root dilated measuring 3.8 cm. -Lexiscan Cardiolite stress test performed at [facility] 2018 revealed no stress-induced ischemic change. Mild dyskinesia of the distal anterior wall. Review Of Systems: At the time of my exam: CONSTITUTIONAL: Reports fever or chills. HEENT: Denies blurred vision, vision changes, or eye pain. Denies hemoptysis CARDIOVASCULAR: Denies chest pain. Denies orthopnea. Denies PND. Denies palpitations RESPIRATORY: Reports cough, reports shortness of breath. GASTROINTESTINAL: Denies abdominal pain. Denies nausea or vomiting. HEMATOLOGIC: Denies bleeding disorders. GENITOURINARY: Denies any blood in urine. SKIN: Denies puritis. Denies rash. Physical examination: Gen: This is a 58-year-old female in no acute respiratory distress. VS: reviewed HEENT: Head is atraumatic, normocephalic. Pupils equal, round. Sclerae is anicteric. NECK: Supple. No JVD. LUNGS: Bilateral breath sounds heard. No intercostal retractions. HEART: Regular rate and rhythm. No murmur. ABDOMEN: Soft No tenderness. EXTREMITIES: No pedal edema. No calf tenderness. NEUROLOGICAL: Patient is awake, alert and oriented x3. Assessment: Episode of atrial flutter Acute hypoxic respiratory failure Acute exacerbation of COPD Influenza A Hypertension Hyperlipidemia Aneurysm of the ascending aorta Tobacco use and dependence Alcohol dependence Plan: Resume patient's home cardiac medications Continue the increased dose of metoprolol tartrate 50 mg twice daily No need for Eliquis at this time Obtain 2-D echocardiogram and Doppler study to assess cardiac structure and function Request radiology comment on the ascending aortic aneurysm on the CTA report Further recommendations to follow based upon clinical course Smoking cessation. Patient will be provided the [place] quit line information at discharge. Thank you kindly for this consultation. Nurse practitioner note has been reviewed, I agree with documented findings and plan of care. Patient was seen and examined. Past Medical History Past Medical History: Hypertension, Osteoarthritis (OA) Additional Past Medical History / Comment(s): Per patient aortic aneurism History of Any Multi-Drug Resistant Organisms: None Reported Past Surgical History: Back Surgery, Hysterectomy, Orthopedic Surgery Additional Past Surgical History / Comment(s): 03/02/16-right knee cap reconstruction. neck 3x-crushed c7= has 10 screws, 2 rods, and a cage. 17 screws and plate in the right lower leg. Cervial surg, knee surg Past Anesthesia/Blood Transfusion Reactions: Motion Sickness Past Psychological History: No Psychological Hx Reported Smoking Status: Current every day smoker Past Alcohol Use History: Abuse, Daily Past Drug Use History: None Reported - Past Family History Mother Family Medical History: Congestive Heart Failure (CHF) Father Family Medical History: Cancer, Respiratory Disorder Additional Family Medical History / Comment(s): emphasema and lung cancer Medications and Allergies Home Medications Medication Instructions Recorded Confirmed Type Metoprolol Tartrate [Lopressor] 25 mg PO BID tab 11/18/17 04/22/24 Rx ARIPiprazole [Abilify] 5 mg PO HS 04/22/24 04/22/24 History Ibuprofen [Motrin] 800 mg PO TID 04/22/24 04/22/24 History LORazepam [Ativan] 0.5 mg PO BID 04/22/24 04/22/24 History Phentermine HCl [Adipex-P] 37.5 mg PO DAILY 04/22/24 04/22/24 History Pravastatin Sodium [Pravachol] 20 mg PO DAILY 04/22/24 04/22/24 History Pregabalin [Lyrica] 100 mg PO BID 04/22/24 04/22/24 History Valsartan [Diovan] 80 mg PO DAILY 04/22/24 04/22/24 History traZODone HCL [Desyrel] 50 mg PO HS 04/22/24 04/22/24 History Allergies Allergy/AdvReac Type Severity Reaction Status Date / Time morphine Allergy Anaphylaxis Verified 04/22/24 08:30 Physical Exam Vitals: Vital Signs Temp Pulse Pulse Resp BP BP Pulse Ox 04/23/24 09:17 50 L 18 04/23/24 09:06 53 L 16 94 L 04/23/24 08:00 58 L 18 153/91 93 L 04/23/24 00:35 98.5 F 49 L 20 143/76 91 L 04/23/24 00:16 98.7 F 44 L 16 136/83 98 04/22/24 22:17 97.8 F 52 L 18 113/76 97 04/22/24 20:57 98.0 F 58 L 18 115/66 96 04/22/24 20:16 90 04/22/24 20:04 87 04/22/24 18:08 65 20 130/84 97 04/22/24 15:54 98.2 F 57 L 22 119/76 97 04/22/24 15:32 84 04/22/24 15:27 82 04/22/24 13:36 107 H 20 119/89 95 04/22/24 11:25 77 04/22/24 11:17 74 04/22/24 10:11 77 20 93 L Intake and Output 04/22/24 04/23/24 04/23/24 22:59 06:59 14:59 Intake Total 1000 Balance 1000 Intake: Intake, IV Titration 750 Amount Sodium Chloride 0.9% 1, 750 000 ml @ 130 mls/hr IV . Q7H42M [facility] Rx#:[id number] Oral 250 Other: # Voids 2 Results 04/23/24 05:56 04/23/24 05:56 Cardiac Enzymes 04/23/24 Range/Units 05:56 AST 26 (14-36) U/L CBC 04/23/24 Range/Units 05:56 WBC 9.1 (3.8-10.6) k/uL RBC 4.15 (3.80-5.40) m/uL Hgb 12.3 (11.4-16.0) gm/dL Hct 39.0 (34.0-46.0) % Plt Count 189 (150-450) k/uL Comprehensive Metabolic Panel 04/23/24 Range/Units 05:56 Sodium 138 (137-145) mmol/L Potassium 3.9 (3.5-5.1) mmol/L Chloride 106 (98-107) mmol/L Carbon Dioxide 29 (22-30) mmol/L BUN 14 (7-17) mg/dL Creatinine 0.54 (0.52-1.04) mg/dL Glucose 154 H (74-99) mg/dL Calcium 8.7 (8.4-10.2) mg/dL AST 26 (14-36) U/L ALT 24 (4-34) U/L Alkaline Phosphatase 88 (38-126) U/L Total Protein 5.9 L (6.3-8.2) g/dL Albumin 3.4 L (3.5-5.0) g/dL Current Medications Generic Name Dose Route Start Last Admin Trade Name Freq PRN Reason Stop Dose Admin Acetaminophen 650 mg 04/21/24 22:31 04/22/24 18:58 Acetaminophen Tab 325 Mg Tab PO 650 mg Q6HR PRN Administration Mild Pain or Fever > 100.5 Albuterol/Ipratropium 3 ml 04/22/24 08:00 04/23/24 09:06 Ipratropium-Albuterol 3 Ml Neb INHALATION 3 ml RT-QID MARK Administration Albuterol/Ipratropium 3 ml 04/21/24 23:27 Ipratropium-Albuterol 3 Ml Neb INHALATION RT-Q2H PRN Shortness Of Breath Or Wheezing Aripiprazole 5 mg 04/22/24 21:00 04/22/24 20:27 Aripiprazole 5 Mg Tab PO 5 mg HS MARK Administration Budesonide/Formoterol Fumarate 2 puff 04/22/24 20:00 04/23/24 09:06 Symbicort 160-4.5 Mcg Inhaler INHALATION 2 puff RT-BID MARK Administration Enoxaparin Sodium 40 mg 04/23/24 09:00 04/23/24 09:21 Enoxaparin 40 Mg/0.4 Ml Syringe SQ 40 mg DAILY MARK Administration Guaifenesin/Dextromethorphan 10 ml 04/23/24 08:42 04/23/24 09:45 Guaifenesin-Dm 100-10mg/5ml 10 Ml Cup PO 10 ml Q6HR PRN Administration Cough Sodium Chloride 1,000 mls @ 130 mls/hr 04/21/24 22:45 04/23/24 00:46 Saline 0.9% IV 130 mls/hr .Q7H42M MARK Administration Ibuprofen 400 mg 04/21/24 22:31 04/22/24 21:03 Ibuprofen 400 Mg Tab PO 400 mg Q6HR PRN Administration Mild Pain or Fever > 100.5 Ibuprofen 800 mg 04/22/24 22:00 04/23/24 09:21 Ibuprofen 800 Mg Tab PO 800 mg TID MARK Administration Lorazepam 0.5 mg 04/22/24 21:00 04/23/24 09:22 Lorazepam 0.5 Mg Tab PO 0.5 mg BID MARK Administration Methylprednisolone Sodium Succinate 60 mg 04/22/24 12:00 04/23/24 06:54 Methylprednisolone Sod Succi 125 Mg/2 Ml Vial IV 60 mg Q6HR MARK Administration Metoprolol Tartrate 50 mg 04/22/24 21:00 04/23/24 09:22 Metoprolol Tartrate 50 Mg Tab PO 50 mg BID MARK Administration Naloxone HCl 0.2 mg 04/21/24 22:31 Naloxone 0.4 Mg/Ml 1 Ml Vial IV Q2M PRN Opioid Reversal Nicotine 1 patch 04/23/24 09:00 04/23/24 09:22 Nicotine 14mg/24hr Patch TRANSDERM 1 patch DAILY MARK Administration Ondansetron HCl 4 mg 04/21/24 22:31 Ondansetron 4 Mg/2 Ml Vial IVP Q8HR PRN Nausea And Vomiting Oseltamivir Phosphate 75 mg 04/22/24 09:00 04/23/24 09:22 Oseltamivir 75 Mg Cap PO 04/26/24 21:01 75 mg Q12HR MARK Administration Protocol Pantoprazole Sodium 40 mg 04/22/24 09:00 04/23/24 09:21 Pantoprazole 40 Mg/10 Ml Vial IV 04/23/24 10:00 40 mg DAILY MARK Administration Pantoprazole Sodium 40 mg 04/24/24 07:30 Pantoprazole 40 Mg Tablet PO AC-BRKFST MARK Pravastatin Sodium 20 mg 04/22/24 19:30 04/23/24 09:22 Pravastatin Sodium 20 Mg Tab PO 20 mg DAILY MARK Administration Pregabalin 100 mg 04/22/24 21:00 04/23/24 09:22 Pregabalin 100 Mg Cap PO 100 mg BID MARK Administration Trazodone HCl 50 mg 04/22/24 21:00 04/22/24 20:27 Trazodone Hcl 50 Mg Tab PO 50 mg HS MARK Administration Valsartan 80 mg 04/23/24 09:00 04/23/24 09:22 Valsartan 80 Mg Tab PO 80 mg DAILY MARK Administration Intake and Output 04/22/24 04/23/24 04/23/24 22:59 06:59 14:59 Intake Total 1000 Balance 1000 Intake: Intake, IV Titration 750 Amount Sodium Chloride 0.9% 1, 750 000 ml @ 130 mls/hr IV . Q7H42M [facility] Rx#:[id number] Oral 250 Other: # Voids 2 04/23/24 05:56 04/23/24 05:56
[2024-04-23] MEDS: ALBUTEROL NEBULIZED 2.5 MG/3 ML INHALATION SCH (12:22)
--- NOTE | 2024-04-23 12:33 | P.PN ---
Subjective Progress Note Date: 04/23/24 Principal diagnosis: Acute hypoxic respiratory failure secondary to COPD exacerbation and influenza A infection This is a 58-year-old female patient with a known history of hypertension, osteoarthritis, chronic and ongoing tobacco dependence, chronic and ongoing alcohol dependence who presented here to the emergency room yesterday from an urgent care center after being found to have low oxygen levels. She had been having issues with shortness of breath cough congestion and fevers. Chest x-ray reveals no acute pulmonary process. CT angiogram ruled out pulmonary embolism. No acute thoracic process. White count 3.0. Hemoglobin 12.6. Platelets 184. D-dimer 0.70. Sodium 140. Potassium 3.8. Bicarb 28. BUN 10. Creatinine 0.54. Glucose 157. Viral screen positive for influenza A. She is seen today in consultation in the emergency department. She is currently sitting up in a stretcher. Awake and alert in no acute distress. She does have a loose nonproductive cough. She was having complaints of headache. She is maintaining O2 saturations in the mid 90s on 4 L/min per nasal cannula. She has been afebrile. Hemodynamically stable. Patient was seen today on 04/23/2024, seen for follow-up on her COPD and acute influenza A infection, patient is feeling a bit better but she continues to have intermittent cough and wheezing but definite improvement compared to yesterday. Remains on oxygen, at 2 L, and her O2 sats is 94%. WBC count today is 9.1 hemo globin 12.3 electrolytes are normal renal profile is normal Objective - Vital Signs Vital signs: Vital Signs Temp 98.5 F 04/23/24 00:35 Pulse 50 L 04/23/24 12:22 Resp 18 04/23/24 12:22 BP 153/91 04/23/24 08:00 Pulse Ox 94 L 04/23/24 09:06 FiO2 Intake & Output 04/22/24 04/23/24 04/23/24 18:59 06:59 18:59 Intake Total 1000 Balance 1000 Intake: Intake, IV Titration 750 Amount Sodium Chloride 0.9% 1, 750 000 ml @ 130 mls/hr IV . Q7H42M [facility] Rx#:[id number] Oral 250 Other: # Voids 2 - Exam GENERAL EXAM: Alert, pleasant 58-year-old female, on 2 L nasal cannula HEAD: Normocephalic. EYES: Normal reaction of pupils, equal size. NOSE: Clear with pink turbinates. THROAT: No erythema or exudates. NECK: No masses, no JVD. CHEST: No chest wall deformity. LUNGS: Rhonchi and wheezes persist bilaterally. CVS: S1 and S2 normal with no audible murmur, regular rhythm. ABDOMEN: No hepatosplenomegaly, normal bowel sounds, no guarding or rigidity. SKIN: No rashes CENTRAL NERVOUS SYSTEM: Alert and oriented x 3 no focal deficit EXTREMITIES: No clubbing edema or cyanosis - Labs CBC & Chem 7: 04/23/24 05:56 04/23/24 05:56 Labs: Abnormal Lab Results - Last 24 Hours (Table) 04/23/24 04/23/24 Range/Units 05:56 05:56 Neutrophils # 8.2 H (1.3-7.7) k/uL Lymphocytes # 0.6 L (1.0-4.8) k/uL Glucose 154 H (74-99) mg/dL Total Protein 5.9 L (6.3-8.2) g/dL Albumin 3.4 L (3.5-5.0) g/dL Assessment and Plan Assessment: Impression: Acute hypoxic respiratory failure secondary to acute exacerbation of COPD and complicated by acute influenza A infection Acute influenza A infection Acute COPD exacerbation Tobacco dependence syndrome, patient had a [id number] smoking history ongoing. Chronic neck and back pain Degenerative joint disease History of alcohol use daily Dyslipidemia Recommendation: Continue present course of treatment including bronchodilators/DuoNeb/Symbicort Continue Solu-Medrol and transition to prednisone in a.m. Continue Tamiflu Continue Lovenox for DVT prophylaxis Counseled regarding smoking cessation Titrate oxygen accordingly and maintain O2 sat above 89% Consider discharge planning in the next 24 hours assuming patient continues to improve. Will continue to follow Time with Patient: Less than 30
--- NOTE | 2024-04-23 16:17 | P.PN ---
Subjective Progress Note Date: 04/23/24 Alberta Carter, is a 58-year-old female who presented to [facility] emergency room with a chief complaint of worsening shortness of breath She was evaluated in the emergency room vital examination on presentation revealed a temperature of 98.7 pulse 86 respiration 22 blood pressure 156/84 pulse ox 94% on 4 L nasal cannula Laboratory data revealed a white blood count of 4.3 hemoglobin 12.7 platelet count 174 D-dimer 0.7 sodium 132 potassium 3.3 BUN 11 creatinine 0.53 influenza A PCR was positive Testing in the emergency room revealed chest x-ray revealed no acute cardiopulmonary disease, CT angiogram of the chest revealed no evidence of pulmonary embolism Patient was admitted to medical floor for further evaluation and treatment On 04/23/2024 patient was seen and examined on the medical floor she is alert and oriented x 3 in no apparent distress there is no fever or chills no headache or dizziness she is still complaining of cough and shortness of breath and chest tightness no chest pain no palpitation no nausea or vomiting no abdominal pain no diarrhea and no urinary symptoms. Input from cardiology and pulmonary reviewed. Objective - Vital Signs Vital signs: Vital Signs Temp 98.5 F 04/23/24 00:35 Pulse 58 L 04/23/24 08:00 Resp 18 04/23/24 08:00 BP 153/91 04/23/24 08:00 Pulse Ox 93 L 04/23/24 08:00 FiO2 Intake & Output 04/22/24 04/23/24 04/23/24 18:59 06:59 18:59 Intake Total 1000 Balance 1000 Intake: Intake, IV Titration 750 Amount Sodium Chloride 0.9% 1, 750 000 ml @ 130 mls/hr IV . Q7H42M [facility] Rx#:[id number] Oral 250 Other: # Voids 2 - Exam In general patient is alert and oriented x 3 in no distress HEENT head normocephalic and atraumatic Neck is supple no JVD no goiter no lymphadenopathy no carotid bruit Chest examination revealed the scattered crackles bilaterally with wheezing Cardiac exam reveals regular heart sounds S1 and S2 no gallops no murmurs Abdomen is soft nontender no organomegaly with normal bowel sounds Extremity exam reveals no edema no cyanosis or clubbing Neurological examination reveals no gross focal deficits - Labs CBC & Chem 7: 04/23/24 05:56 04/23/24 05:56 Labs: Abnormal Lab Results - Last 24 Hours (Table) 04/23/24 04/23/24 Range/Units 05:56 05:56 Neutrophils # 8.2 H (1.3-7.7) k/uL Lymphocytes # 0.6 L (1.0-4.8) k/uL Glucose 154 H (74-99) mg/dL Total Protein 5.9 L (6.3-8.2) g/dL Albumin 3.4 L (3.5-5.0) g/dL Assessment and Plan Plan: Acute influenza A infection Acute exacerbation of chronic obstructive pulmonary disease Chronic tobacco use Elevated D-dimer no evidence of pulmonary embolism on CT scan of the chest Underlying history of hypertension Underlying history of hyperlipidemia Underlying history of anxiety disorder Underlying history of depression At this time patient is admitted to medical floor She was started on Tamiflu Pulmonary consultation was requested For DVT prophylaxis subcu Lovenox She was counseled in length in regard to smoking cessation Will follow closely
[2024-04-24 06:09] LABS: Basophils % (A) 0 %; Eosinophils % (A) 0 %; HCT 37.3 % (34.0-46.0); HGB 12.2 gm/dL (11.4-16.0); Lymphocytes # (A) 0.5 k/uL (1.0-4.8); Lymphocytes % (A) 6 %; MCH 29.9 pg (25.0-35.0); MCHC 32.8 g/dL (31.0-37.0); MCV 91.3 fL (80.0-100.0); Mean Platelet Volume 8.3; Monocytes # (A) 0.2 k/uL (0-1.0); Monocytes % (A) 3 %; Neutrophils # (A) 7.1 k/uL (1.3-7.7); Neutrophils % (A) 90 %; Platelet Count 177 k/uL (150-450); RBC 4.08 m/uL (3.80-5.40); RDW 13.2 % (11.5-15.5); WBC 7.8 k/uL (3.8-10.6)
[2024-04-24] MEDS: PANTOPRAZOLE 40 MG TABLET PO SCH (06:15)
[2024-04-24 06:25] LABS: ALT 25 U/L (4-34); AST 24 U/L (14-36); African American GFR (CKD) >90 (>60 ml/min/1.73 sqM); Albumin 3.4 g/dL (3.5-5.0); Alkaline Phosphatase 75 U/L (38-126); Anion Gap 5 mmol/L; Blood Urea Nitrogen 17 mg/dL (7-17); Calcium 8.8 mg/dL (8.4-10.2); Carbon Dioxide 30 mmol/L (22-30); Chloride 103 mmol/L (98-107); Glucose 154 mg/dL (74-99); Non-African American GFR(CKD) >90 (>60 ml/min/1.73 sqM); Potassium 3.5 mmol/L (3.5-5.1); Sodium 138 mmol/L (137-145); Total Bilirubin 0.3 mg/dL (0.2-1.3); Total Protein 5.9 g/dL (6.3-8.2)
[2024-04-24] MEDS: METOPROLOL TARTRATE 25 MG TAB PO SCH (08:44)
--- NOTE | 2024-04-24 11:20 | CA ---
Transthoracic Echo Report Name: Alberta Carter Age: 58 Gender: F : 1965 Exam Date: 04/24/2024 09:23 Exam Location: [facility] Ht (in): 66 Wt (lb): 240 Ordering Physician: Liz Garcia Attending/Referring Phys: [id number], Radha Supervisor [employer] Yessy Solorio, MARY Procedure CPT: Indications: LVF Cardiac Hx: Technical Quality: Fair Contrast 1: Total Dose (mL): Contrast 2: Total Dose (mL): MEASUREMENTS (Male / Female) Normal Values 2D ECHO LV Diastolic Diameter PLAX 5.1 cm 4.2 - 5.9 / 3.9 - 5.3 cm LV Systolic Diameter PLAX 2.2 cm IVS Diastolic Thickness 1.7 cm 0.6 - 1.0 / 0.6 - 0.9 cm LVPW Diastolic Thickness 1.3 cm 0.6 - 1.0 / 0.6 - 0.9 cm LV Relative Wall Thickness 0.6 RV Internal Dim ED PLAX 2.7 cm Aortic Root Diameter 4.1 cm LA Systolic Diameter LX 4.4 cm 3.0 - 4.0 / 2.7 - 3.8 cm LV Diastolic Volume MOD BP 77.9 cm??? 67 - 155 / 56 - 104 cm??? LV Systolic Volume MOD BP 16.3 cm??? 22 - 58 / 19 - 49 cm??? LV Ejection Fraction MOD BP 79.1 % >= 55 % LV Cardiac Index MOD BP 1525.5 cm???/min???m??? LV Diastolic Volume MOD 4C 74.5 cm??? LV Systolic Volume MOD 4C 17.0 cm??? LV Ejection Fraction MOD 4C 77.2 % LV Cardiac Index MOD 4C 1423.8 cm???/min???m??? LV Diastolic Length 4C 8.0 cm LV Systolic Length 4C 5.9 cm LV Diastolic Volume MOD 2C 75.1 cm??? LV Systolic Volume MOD 2C 15.8 cm??? LV Ejection Fraction MOD 2C 79.0 % LV Cardiac Index MOD 2C 1468.7 cm???/min???m??? LV Diastolic Length 2C 7.3 cm LV Systolic Length 2C 5.9 cm M-MODE Aortic Root Diameter MM 4.0 cm LA Systolic Diameter MM 4.2 cm LA Ao Ratio MM 1.0 AV Cusp Separation MM 2.1 cm DOPPLER AI Peak Velocity 283.3 cm/s AI Peak Gradient 32.1 mmHg AI Pressure Half Time 856.7 ms Mitral E Point Velocity 111.5 cm/s Mitral A Point Velocity 86.7 cm/s Mitral E to A Ratio 1.3 MV Deceleration Time 288.2 ms MV E' Velocity 6.6 cm/s Mitral E to MV E' Ratio 16.9 TR Peak Velocity 246.7 cm/s TR Peak Gradient 24.3 mmHg Right Ventricular Systolic Press 34.8 mmHg FINDINGS Left Ventricle Left ventricular ejection fraction is estimated at 55-60 %. Moderate concentric left ventricular hypertrophy. Moderately increased posterior wall thickness. Normal left ventricular systolic function with no obvious regional wall motion abnormalities. Left ventricular cavity size normal. Right Ventricle Mild right ventricular dilatation. Normal right ventricular free wall motion. Right ventricular systolic pressure within normal limits. Right Atrium Mild right atrial dilatation. Left Atrium Moderately increased left atrial diameter. Mitral Valve Structurally normal mitral valve. Mild mitral regurgitation. No mitral stenosis. Aortic Valve Trileaflet aortic valve. Trace aortic regurgitation. No aortic stenosis. Tricuspid Valve Structurally normal tricuspid valve. Mild tricuspid regurgitation. No tricuspid stenosis. Pulmonic Valve Structurally normal pulmonic valve. No pulmonic stenosis. Trace pulmonic regurgitation. Pericardium No pericardial or pleural effusion. Aorta Moderate aortic dilatation at the level of the sinuses of valsalva (root) 4.1cm CONCLUSIONS Normal LV size and systolic function with mild to moderate concentric LVH. Mild right ventricular dilatation. Mild mitral and tricuspid regurgitation. No pericardial effusion Previewed by: Dr. Jen Holloway MD (Electronically Signed) Final Date: 24 April 2024 11:19
--- NOTE | 2024-04-24 12:56 | P.PN ---
Subjective Progress Note Date: 04/24/24 Principal diagnosis: Acute hypoxic respiratory failure secondary to COPD exacerbation and influenza A infection This is a 58-year-old female patient with a known history of hypertension, osteoarthritis, chronic and ongoing tobacco dependence, chronic and ongoing alcohol dependence who presented here to the emergency room yesterday from an urgent care center after being found to have low oxygen levels. She had been having issues with shortness of breath cough congestion and fevers. Chest x-ray reveals no acute pulmonary process. CT angiogram ruled out pulmonary embolism. No acute thoracic process. White count 3.0. Hemoglobin 12.6. Platelets 184. D-dimer 0.70. Sodium 140. Potassium 3.8. Bicarb 28. BUN 10. Creatinine 0.54. Glucose 157. Viral screen positive for influenza A. She is seen today in consultation in the emergency department. She is currently sitting up in a stretcher. Awake and alert in no acute distress. She does have a loose nonproductive cough. She was having complaints of headache. She is maintaining O2 saturations in the mid 90s on 4 L/min per nasal cannula. She has been afebrile. Hemodynamically stable. Patient was seen today on 04/23/2024, seen for follow-up on her COPD and acute influenza A infection, patient is feeling a bit better but she continues to have intermittent cough and wheezing but definite improvement compared to yesterday. Remains on oxygen, at 2 L, and her O2 sats is 94%. WBC count today is 9.1 hemo globin 12.3 electrolytes are normal renal profile is normal Patient was seen today on 04/24/2024, patient is feeling much better today, breathing easier, less cough less wheezing less shortness of breath, hence I will clear the patient to be discharged home today and follow-up on outpatient basis. Labs were noted to be unremarkable. Objective - Vital Signs Vital signs: Vital Signs Temp 98.1 F 04/24/24 07:52 Pulse 59 L 04/24/24 07:52 Resp 17 04/24/24 07:52 BP 154/83 04/24/24 07:52 Pulse Ox 96 04/24/24 07:52 FiO2 Intake & Output 04/23/24 04/24/24 04/24/24 18:59 06:59 18:59 Weight 108.862 kg Other: # Voids 4 1 - Exam GENERAL EXAM: Alert, pleasant 58-year-old female, on 2 L nasal cannula, O2 saturation 96% HEAD: Normocephalic. EYES: Normal reaction of pupils, equal size. NOSE: Clear with pink turbinates. THROAT: No erythema or exudates. NECK: No masses, no JVD. CHEST: No chest wall deformity. LUNGS: Clear bilaterally no rhonchi no wheezes CVS: S1 and S2 normal with no audible murmur, regular rhythm. ABDOMEN: No hepatosplenomegaly, normal bowel sounds, no guarding or rigidity. SKIN: No rashes CENTRAL NERVOUS SYSTEM: Alert and oriented x 3 no focal deficit EXTREMITIES: No clubbing edema or cyanosis - Labs CBC & Chem 7: 04/24/24 05:54 04/24/24 05:54 Labs: Abnormal Lab Results - Last 24 Hours (Table) 04/24/24 04/24/24 Range/Units 05:54 05:54 Lymphocytes # 0.5 L (1.0-4.8) k/uL Glucose 154 H (74-99) mg/dL Total Protein 5.9 L (6.3-8.2) g/dL Albumin 3.4 L (3.5-5.0) g/dL Assessment and Plan Assessment: Impression: Acute hypoxic respiratory failure secondary to acute exacerbation of COPD and complicated by acute influenza A infection Acute influenza A infection Acute COPD exacerbation Tobacco dependence syndrome, patient had a [id number] smoking history ongoing. Chronic neck and back pain Degenerative joint disease History of alcohol use daily Dyslipidemia Recommendation: Continue Tamiflu, for total of 5-day course therapy Continue bronchodilators Will clear for discharge home today patient to remain on bronchodilators at home and to go on a course of prednisone 30 mg tapered over 12 days Time with Patient: Less than 30
--- NOTE | 2024-04-24 14:00 | P.PN ---
Subjective Progress Note Date: 04/24/24 Reason for Consult (text): Abnormal EKG, chest pain History of present illness: This is a 58-year-old female with past medical history of hyperlipidemia, hypertension, aneurysm of the ascending aorta measuring 4 cm, tobacco use and dependence, alcohol dependence. Patient previously was seen in the office by Dr. Carson in 2019. We have been asked to evaluate the patient for abnormal EKG and chest pain. Patient initially presented to urgent care center and found to have low pulse ox and was sent to the hospital for further evaluation. Patient presented initially for shortness of breath cough and fevers. Patient tested positive for influenza A and was started on Tamiflu and admitted to the observation unit. And patient second EKG she was found to be in atrial flutter. Yesterday, we did resume her on her beta-az and increased dose of 50 mg twice daily. Patient was last seen in the office with Dr. Carson in 2019 and at that time the plan was for CT angiogram of the chest to check the thoracic aortic aneurysm and follow-up in 6 months. -EKG: #1 sinus rhythm. #2 atrial flutter 151 bpm -Chest x-ray: No acute process. -CTA chest no evidence of pulmonary embolism. No acute thoracic process. Splenic pseudocyst. Bilateral chronic appearing rib fractures. Incidental pulmonary nodules. -Laboratory studies: -Home cardiac medications: Metoprolol tartrate 25 mg twice daily, pravastatin 20 mg daily, valsartan 80 mg daily -Echocardiogram performed in 2018 at [facility] revealed EF 55 to 60%, mild mitral regurgitation, mild tricuspid regurgitation aortic root dilated measuring 3.8 cm. -Lexiscan Cardiolite stress test performed at [facility] 2018 revealed no stress-induced ischemic change. Mild dyskinesia of the distal anterior wall. 04/24 Patient seen and examined. Echocardiogram reveals EF of 55 to 60%, moderate concentric LVH, mild mitral and tricuspid regurgitation. No pericardial effusion. Patient remains in isolation for for influenza A. She remains on 2 L nasal cannula with pulse ox 96%, heart rate in the 50s, blood pressure 154/83. Repeat blood work reveals CBC unremarkable, electrolytes and renal function are normal. Discussed again with the patient the need for smoking cessation. Physical examination: Gen: This is a 58-year-old female in no acute respiratory distress. VS: reviewed HEENT: Head is atraumatic, normocephalic. Pupils equal, round. Sclerae is anicteric. NECK: Supple. No JVD. LUNGS: Bilateral breath sounds heard. No intercostal retractions. HEART: Regular rate and rhythm. No murmur. ABDOMEN: Soft No tenderness. EXTREMITIES: No pedal edema. No calf tenderness. NEUROLOGICAL: Patient is awake, alert and oriented x3. Assessment: Episode of atrial flutter Acute hypoxic respiratory failure Acute exacerbation of COPD Influenza A Hypertension Hyperlipidemia Aneurysm of the ascending aorta Tobacco use and dependence Alcohol dependence Plan: Continue patient's home cardiac medications Continue the increased dose of metoprolol tartrate 50 mg twice daily No need for Eliquis at this time Smoking cessation. Patient will be provided the [employer] quit line information at discharge. Cardiology will sign off this case and follow on an as-needed basis. Please reconsult for any new concerns. Patient may follow-up in the office in one to [address] Byrd. Nurse practitioner note has been reviewed, I agree with documented findings and plan of care. Patient was seen and examined. Objective - Vital Signs Vital signs: Vital Signs Temp 98.1 F 04/24/24 07:52 Pulse 59 L 04/24/24 07:52 Resp 17 04/24/24 07:52 BP 154/83 04/24/24 07:52 Pulse Ox 96 04/24/24 07:52 FiO2 Intake & Output 04/23/24 04/24/24 04/24/24 18:59 06:59 18:59 Weight 108.862 kg Other: # Voids 4 1 - Labs CBC & Chem 7: 04/24/24 05:54 04/24/24 05:54 Labs: Abnormal Lab Results - Last 24 Hours (Table) 04/24/24 04/24/24 Range/Units 05:54 05:54 Lymphocytes # 0.5 L (1.0-4.8) k/uL Glucose 154 H (74-99) mg/dL Total Protein 5.9 L (6.3-8.2) g/dL Albumin 3.4 L (3.5-5.0) g/dL
[2024-04-24 15:05] VITALS: BP 166/97; PULSE 83; RESP 17; TEMP 98.2
--- NOTE | 2024-04-24 16:16 | P.DS ---
Providers Date of admission: 04/21/24 22:31 Expected date of discharge: 04/24/24 Attending physician: Chicho Sargent Consults: 04/21/24 22:31 Consult Physician Routine Consulting Provider: Tejas Castillo Consult Reason/Comments: hypoxia Do you want consulting provider notified?: Yes 04/22/24 13:42 Consult Physician Routine Consulting Provider: Aguilar Killian Consult Reason/Comments: Abnormal EKG, chest pain Do you want consulting provider notified?: Yes Primary care physician: Chicho Sargent [facility] Course: Diagnosis on discharge: Acute influenza A infection Acute exacerbation of chronic obstructive pulmonary disease Chronic tobacco use Elevated D-dimer no evidence of pulmonary embolism on CT scan of the chest Underlying history of hypertension Underlying history of hyperlipidemia Underlying history of anxiety disorder Underlying history of depression Hospital course: Alberta Carter, is a 58-year-old female who presented to [facility] emergency room with a chief complaint of worsening shortness of breath She was evaluated in the emergency room vital examination on presentation revealed a temperature of 98.7 pulse 86 respiration 22 blood pressure 156/84 pulse ox 94% on 4 L nasal cannula Laboratory data revealed a white blood count of 4.3 hemoglobin 12.7 platelet count 174 D-dimer 0.7 sodium 132 potassium 3.3 BUN 11 creatinine 0.53 influenza A PCR was positive Testing in the emergency room revealed chest x-ray revealed no acute cardiopulmonary disease, CT angiogram of the chest revealed no evidence of pulmonary embolism Patient was admitted to medical floor for further evaluation and treatment On 04/23/2024 patient was seen and examined on the medical floor she is alert and oriented x 3 in no apparent distress there is no fever or chills no headache or dizziness she is still complaining of cough and shortness of breath and chest tightness no chest pain no palpitation no nausea or vomiting no abdominal pain no diarrhea and no urinary symptoms. Input from cardiology and pulmonary reviewed. On 04/24/2024 patient was seen and examined on the medical floor she is alert and oriented x 3 in no apparent distress there is no fever or chills no headache or dizziness no chest pain, her shortness of breath and cough have improved significantly, patient is stable for discharge to home, she was given a course of prednisone, during this admission patient had an episode of a flutter dose of metoprolol was increased to 50 mg twice a day she was evaluated by cardiology who advised that anticoagulation is not recommended at this time. She will be followed in our office within 2 to 3 days Patient Condition at Discharge: Fair Plan - Discharge Summary Discharge Rx Participant: Yes New Discharge Prescriptions: New Nicotine 14Mg/24Hr Patch [Habitrol] 1 patch TRANSDERM DAILY 30 Days #30 patch Metoprolol Tartrate [Lopressor] 50 mg PO BID 30 Days #60 tab predniSONE 10 mg PO DAILY 12 Days #30 tab Budesonide-Formot 160-4.5 Mcg [Symbicort 160-4.5 Mcg Inhaler] 2 puff INHALAT ION RT-BID 30 Days #120 each Oseltamivir [Tamiflu] 75 mg PO Q12HR 3 Days #6 cap Albuterol Nebulized [Ventolin Nebulized] 2.5 mg INHALATION RT-QID 30 Days #360 ml Continue LORazepam [Ativan] 0.5 mg PO BID ARIPiprazole [Abilify] 5 mg PO HS Pravastatin Sodium [Pravachol] 20 mg PO DAILY traZODone HCL [Desyrel] 50 mg PO HS Valsartan [Diovan] 80 mg PO DAILY Pregabalin [Lyrica] 100 mg PO BID Phentermine HCl [Adipex-P] 37.5 mg PO DAILY Discontinued Metoprolol Tartrate [Lopressor] 25 mg PO BID tab Ibuprofen [Motrin] 800 mg PO TID Discharge Medication List ARIPiprazole [Abilify] 5 mg PO HS 04/22/24 [History] LORazepam [Ativan] 0.5 mg PO BID 04/22/24 [History] Phentermine HCl [Adipex-P] 37.5 mg PO DAILY 04/22/24 [History] Pravastatin Sodium [Pravachol] 20 mg PO DAILY 04/22/24 [History] Pregabalin [Lyrica] 100 mg PO BID 04/22/24 [History] Valsartan [Diovan] 80 mg PO DAILY 04/22/24 [History] traZODone HCL [Desyrel] 50 mg PO HS 04/22/24 [History] Albuterol Nebulized [Ventolin Nebulized] 2.5 mg INHALATION RT-QID 30 Days #360 ml 04/24/24 [Rx] Budesonide-Formot 160-4.5 Mcg [Symbicort 160-4.5 Mcg Inhaler] 2 puff INHALATION RT-BID 30 Days #120 each 04/24/24 [Rx] Metoprolol Tartrate [Lopressor] 50 mg PO BID 30 Days #60 tab 04/24/24 [Rx] Nicotine 14Mg/24Hr Patch [Habitrol] 1 patch TRANSDERM DAILY 30 Days #30 patch 04/24/24 [Rx] Oseltamivir [Tamiflu] 75 mg PO Q12HR 3 Days #6 cap 04/24/24 [Rx] predniSONE 10 mg PO DAILY 12 Days #30 tab 04/24/24 [Rx] Follow up Appointment(s)/Referral(s): Keenan Byrd MD [Medical Doctor] - 2 Weeks Chicho Sargent MD [Primary Care Provider] - 1-2 days
== END 2024-04-24 16:55 | disposition home or self-care (01) | DRG 193 ==
LOC: EC 19:37 → 4SSUR 22:31 → 1SOBS 04-22 19:23
PROVIDERS: ADMIT Internal Medicine; ATTEND Internal Medicine
PROC: 8E0ZXY6 Isolation (ICD-10-PCS; principal; 2024-04-21)
DX: J10.1 Influenza due to other identified influenza virus with other respiratory manifestations (principal); J96.01 Acute respiratory failure with hypoxia; J44.1 Chronic obstructive pulmonary disease with (acute) exacerbation; I48.92 Unspecified atrial flutter; F10.20 Alcohol dependence, uncomplicated; I10 Essential (primary) hypertension; I71.21 Aneurysm of the ascending aorta, without rupture; F32.A Depression, unspecified; M19.90 Unspecified osteoarthritis, unspecified site; F41.9 Anxiety disorder, unspecified; F17.210 Nicotine dependence, cigarettes, uncomplicated; G89.29 Other chronic pain; M54.2 Cervicalgia; M54.9 Dorsalgia, unspecified; R79.1 Abnormal coagulation profile; E78.5 Hyperlipidemia, unspecified; G24.9 Dystonia, unspecified; Z88.5 Allergy status to narcotic agent; Z79.899 Other long term (current) drug therapy; Z79.51 Long term (current) use of inhaled steroids
CPT/HCPCS: 36415; 71046; 71275; 80053; 83605; 83735; 83880; 84100; 84484; 85025; 85379; 85610; 85730; 87636; 93005; 93306; 94640; 94760; 96361; 96374; 96375; 96376; 99291

== ENCOUNTER → 2024-05-27 | Outpatient (CLI) | payer MEDICARE ==
[2024-05-27 15:58] LABS: LDL Cholesterol,Calculated 131.5 mg/dL (0.0-131.0)
== END | disposition home or self-care (01) ==
LOC: LABWHC1 09:16
PROVIDERS: ATTEND Psychiatry & Neurology Psychiatry
DX: E11.9 Type 2 diabetes mellitus without complications (principal); E78.5 Hyperlipidemia, unspecified; E03.9 Hypothyroidism, unspecified
CPT/HCPCS: 36415; 80061; 83036; 84443